=== PATIENT | female | born 1960 | race African-American/Black ===

== ENCOUNTER 2017-01-24 09:29 | Emergency (ER) | payer OTHER ==
[~2017-01-24 09:29] MED LIST: CLON0.1T PO; LISI-515 PO
[2017-01-24 09:31] VITALS: BP 201/98; PULSE 74; RESP 14; TEMP 97.8; O2SAT 97
--- NOTE | 2017-01-24 09:46 | PD ---
HPI Chief Complaint: Medication Refill Request Time Seen by Provider: 09:40 Travel History International Travel<30 days: No Contact w/Intl Traveler<30days: No Traveled to known affect area: No History of Present Illness HPI 56-year-old Afro-[place] female presents the emergency department for refills on her lisinopril and clonidine. Patient states she has been out for the last 2 days. She has no complaints currently, but is noted that she is hypertensive in triage. Patient denies headache or other symptoms. She is allergic to penicillin. PFSH Past Medical History Anemia: Yes Arthritis: No Asthma: Yes Autoimmune Disease: No Anxiety: Yes Depression: No Cancer: No Cardiomyopathy: Yes Cardiovascular Problems: Yes (HTN) High Cholesterol: No Chemotherapy: No Chest Pain: No Congestive Heart Failure: No COPD: No Cerebrovascular Accident: No Diabetes: No Diminished Hearing: No Endocrine: No Gastrointestinal Disorders: Yes GERD: No Glaucoma: No Genitourinary: No Headaches: Yes (S/P CLOSED HEAD INJURY 1988. 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) Psychiatric: No Reproductive: Yes (OVARIAN CYST, FIBROID TUMOR.) Respiratory: Yes Immunizations Current: Yes Migraines: No Radiation Therapy: No Renal Failure: No Sickle Cell Disease: No Sleep Apnea: No Thyroid Disease: No Ulcer: Yes Menopausal: Yes : 4 Para: 3 Miscarriage: 1 Past Surgical History AICD: No Appendectomy: No Arteriovenous Shunt: No Cholecystectomy: No Gynecologic Surgery: Yes (HYSTERECTOMY ) Hysterectomy: Yes Insulin Pump: No Neurologic Surgery: Yes Pacemaker: No Other Surgery: Yes (HYST 12/29) Social History Alcohol Use: Yes (OCASSIONALLY) Tobacco Use: Yes (/2 PPD) Substance Use: Yes (MARIJUANA) Allergies-Medications (Allergen,Severity, Reaction): Coded Allergies: Penicillin (Verified Allergy, Severe, SHAKING, RASH, ITCHING, 12/31/16) SHAKING Reported Meds & Prescriptions Reported Meds & Active Scripts Active Lisinopril 40 Mg Tab 40 Mg PO DAILY Clonidine (Clonidine HCl) 0.2 Mg Tab 0.2 Mg PO TID Clonidine (Clonidine HCl) 0.1 Mg Tab 0.1 Mg PO HS Lisinopril 20 Mg Tab 20 Mg PO DAILY Review of Systems Except as stated in HPI: all other systems reviewed are Neg General / Constitutional: No: Fever Eyes: No: Visual changes HENT: No: Headaches Cardiovascular: No: Chest Pain or Discomfort Respiratory: No: Shortness of Breath Gastrointestinal: No: Abdominal Pain Genitourinary: No: Dysuria Musculoskeletal: No: Pain Skin: No Rash Neurologic: No: Weakness Psychiatric: No: Depression Endocrine: No: Polydipsia Hematologic/Lymphatic: No: Easy Bruising Physical Exam Narrative GENERAL: Patient appears in no acute distress. SKIN: Warm and dry. Normal color. Normal turgor. HEAD: Atraumatic. Normocephalic. EYES: Pupils equal and round. No scleral icterus. No injection or drainage. ENT: No nasal bleeding or discharge. Mucous membranes pink and moist. NECK: Trachea midline. No JVD. CARDIOVASCULAR: Regular rate and rhythm. RESPIRATORY: No accessory muscle use. Clear to auscultation. Breath sounds equal bilaterally. MUSCULOSKELETAL: Extremities without clubbing, cyanosis, or edema. No obvious deformities. NEUROLOGICAL: Awake and alert. No obvious cranial nerve deficits. Motor grossly within normal limits. Five out of 5 muscle strength in the arms and legs. Normal speech. PSYCHIATRIC: Appropriate mood and affect; insight and judgment normal. Data Data Last Documented VS Vital Signs Date Time Temp Pulse Resp B/P Pulse Ox O2 Delivery O2 Flow Rate FiO2 01/24/17 09:31 97.8 74 14 201/98 97 Orders Clonidine (Catapres) (01/24/17 10:00) Lisinopril (Prinivil) (01/24/17 10:00) [facility] Medical Decision Making Medical Screen Exam Complete: Yes Emergency Medical Condition: Yes Differential Diagnosis Hypertension. Need for medication refill. Need for primary care physician. Narrative Course Patient is medically stable at time of exam. Patient is given a dose of clonidine 0.2 mg by mouth as well as lisinopril 40 mg by mouth. Patient is given a prescription for clonidine 0.2 mg 3 times a day as well as lisinopril 40 mg daily 1 month. Patient is given information about local primary care physicians. Patient should follow-up with them for further evaluation and treatment as discussed. Patient can return to emergency department at any time for worsening symptoms as needed. Diagnosis Primary Impression: Medication refill Additional Impression: Hypertension Qualified Code: I10 - Essential hypertension Referrals: [facility] Patient Instructions: 2 Gram Sodium Diet (DC), Chronic Hypertension (ED), General Instructions Additional Instructions: Patient is medically stable at time of exam. Patient is given a dose of clonidine 0.2 mg by mouth as well as lisinopril 40 mg by mouth. Patient is given a prescription for clonidine 0.2 mg 3 times a day as well as lisinopril 40 mg daily 1 month. Patient is given information about local primary care physicians. Patient should follow-up with them for further evaluation and treatment as discussed. Patient can return to emergency department at any time for worsening symptoms as needed. Med/Other Pt SpecificInfo: Prescription(s) given Scripts Lisinopril 40 Mg Tab40 Mg PO DAILY #30 TAB Ref 0 Prov:Gen Baum MD 01/24/17 Clonidine 0.2 Mg Tab0.2 Mg PO TID #90 TAB Ref 0 Prov:Gen Baum MD 01/24/17 Disposition: 01 DISCHARGE HOME Condition: Stable Mamadou Howell Jan 24, 2017 09:46
[2017-01-24] MEDS ORDERED: CLON0.2T PO ×2 (09:49→09:51)
[2017-01-24] MEDS ORDERED: LISI40TA PO ×2 (09:49→09:51)
[2017-01-24 09:56] VITALS: BP 167/76; PULSE 79; RESP 18; O2SAT 98
[2017-01-24] MEDS ORDERED: cloNIDine HCL 0.2 MG TAB PO ONE (10:00)
[2017-01-24] MEDS ORDERED: LISINOPRIL 20 MG TAB PO ONE (10:00)
== END 2017-01-24 10:10 | disposition home or self-care (01) ==
LOC: NEPK 09:29
DX: I10 Essential (primary) hypertension (principal); F17.200 Nicotine dependence, unspecified, uncomplicated; Z76.0 Encounter for issue of repeat prescription
CPT/HCPCS: 99283

== ENCOUNTER 2017-02-27 06:58 | Emergency (ER) | payer OTHER ==
[~2017-02-27] VITALS: Ht 170.2 cm; Wt 85.0 kg
[~2017-02-27 06:58] MED LIST changes: +CLON0.2T PO; +LISI40TA PO
[2017-02-27 07:00] VITALS: BP 227/109; PULSE 66; RESP 20; TEMP 98; O2SAT 99
[2017-02-27] MEDS ORDERED: CLON0.2T PO (07:09)
--- NOTE | 2017-02-27 07:42 | PD ---
HPI Chief Complaint: Hypertension Time Seen by Provider: 07:36 Travel History International Travel<30 days: No Contact w/Intl Traveler<30days: No Traveled to known affect area: No History of Present Illness HPI 56-year-old female arrives due to subjective hypertension. Normally she takes 2 mg of clonidine 3 times daily and 40 mg of lisinopril once daily. She took her last dose is 2 days ago. She does not have a prescription due to no primary care provider which she attributes to having no insurance. She reports Medicare Medicaid approval to be coming in the mail in the day and then she will establish primary care follow-up. She reports right forehead cephalgia, typical for hypertension for her, which is worse with laughing episodes and talking. Headache duration is 3 days. She has no chest pain or dizziness. She 's had no vomiting. PFSH Past Medical History Anemia: Yes Arthritis: No Asthma: Yes Autoimmune Disease: No Anxiety: Yes Depression: No Cancer: No Cardiomyopathy: Yes Cardiovascular Problems: Yes (htn) High Cholesterol: No Chemotherapy: No Chest Pain: No Congestive Heart Failure: No COPD: No Cerebrovascular Accident: No Diabetes: No Diminished Hearing: No Endocrine: No Gastrointestinal Disorders: Yes GERD: No Glaucoma: No Genitourinary: No Headaches: Yes (S/P CLOSED HEAD INJURY 1988. 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) Psychiatric: No Reproductive: Yes (OVARIAN CYST, FIBROID TUMOR.) Respiratory: Yes Immunizations Current: Yes Migraines: No Radiation Therapy: No Renal Failure: No Sickle Cell Disease: No Sleep Apnea: No Thyroid Disease: No Ulcer: Yes Influenza Vaccination: No Menopausal: Yes : 4 Para: 3 Miscarriage: 1 Past Surgical History AICD: No Appendectomy: No Arteriovenous Shunt: No Cholecystectomy: No Gynecologic Surgery: Yes (HYSTERECTOMY ) Hysterectomy: Yes Insulin Pump: No Neurologic Surgery: Yes Pacemaker: No Other Surgery: Yes (HYST 12/29) Social History Alcohol Use: Yes (OCASSIONALLY) Tobacco Use: Yes (08/26 PPD) Substance Use: No (MARIJUANA) Allergies-Medications (Allergen,Severity, Reaction): Coded Allergies: Penicillin (Verified Allergy, Severe, SHAKING, RASH, ITCHING, 02/27/17) SHAKING Reported Meds & Prescriptions Reported Meds & Active Scripts Active Clonidine (Clonidine HCl) 0.1 Mg Tab 0.1 Mg PO TID 15 Days Lisinopril 40 Mg Tab 40 Mg PO DAILY 15 Days Reported Clonidine (Clonidine HCl) 0.2 Mg Tab 0.2 Mg PO TID Review of Systems Except as stated in HPI: all other systems reviewed are Neg Physical Exam Narrative GENERAL: 56 yo F, NAD, WNWD SKIN: Warm and dry. HEAD: Atraumatic. Normocephalic. EYES: Pupils equal and round. No scleral icterus. No injection or drainage. ENT: No nasal bleeding or discharge. Mucous membranes pink and moist. NECK: Trachea midline. No JVD. CARDIOVASCULAR: Regular rate and rhythm. RESPIRATORY: No accessory muscle use. Clear to auscultation. Breath sounds equal bilaterally. GASTROINTESTINAL: Abdomen soft, non-tender, nondistended. Hepatic and splenic margins not palpable. MUSCULOSKELETAL: Extremities without clubbing, cyanosis, or edema. No obvious deformities. NEUROLOGICAL: Awake and alert. No obvious cranial nerve deficits. Motor grossly within normal limits. Five out of 5 muscle strength in the arms and legs. Normal speech. PSYCHIATRIC: Appropriate mood and affect; insight and judgment normal. Data Data Last Documented VS Vital Signs Date Time Temp Pulse Resp B/P Pulse Ox O2 Delivery O2 Flow Rate FiO2 02/27/17 07:00 98.0 66 20 227/109 99 Room Air VS reviewed, BP at time of HPI 201/110. Orders Clonidine (Catapres) (02/27/17 07:45) Lisinopril (Prinivil) (02/27/17 07:45) [facility] Medical Decision Making Medical Screen Exam Complete: Yes Emergency Medical Condition: Yes Medical Record Reviewed: Yes Differential Diagnosis Medication refill, cephalgia, hypertension, hypertensive emergency Narrative Course Pt received Clonidine 0.1mg and Lisinopril 40mg. We'll provide a short course of both by script. Necessity of follow up discussed. The patient is resting comfortably and feels better, is alert and in no distress at time of reassessment at 830pm; BP 196/91. Diagnosis Primary Impression: Medication refill Additional Impressions: Hypertension Qualified Code: I10 - Essential hypertension Headache Qualified Code: R51 - Nonintractable headache, unspecified chronicity pattern , unspecified headache type Referrals: Nohelia Oh MD call for appointment [facility] call for appointment Additional Instructions: You have a choice when it comes to health care, and we are glad that you chose [facility]. Hopefully, we have met your expectations on today's visit. You are welcome to return to [facility] at any time, as we are committed to meeting the health care needs of our community. Med/Other Pt SpecificInfo: Prescription(s) given Scripts Clonidine 0.1 Mg Tab0.1 Mg PO TID 15 Days Ref 0 Prov:Kimani Tejada MD 02/27/17 Lisinopril 40 Mg Tab40 Mg PO DAILY 15 Days Ref 0 Prov:Kimani Tejada MD 02/27/17 Disposition: 01 DISCHARGE HOME Condition: Stable Kimani Tejada MD Feb 27, 2017 07:42
[2017-02-27] MEDS ORDERED: LISINOPRIL 20 MG TAB PO ONE (07:45)
[2017-02-27] MEDS ORDERED: cloNIDine HCL 0.1 MG TAB PO ONE (07:45)
[2017-02-27] MEDS ORDERED: LISI40TA PO (08:04)
[2017-02-27] MEDS ORDERED: CLON0.1T PO (08:05)
[2017-02-27 08:32] VITALS: BP 194/84; PULSE 65; RESP 20; O2SAT 99
== END 2017-02-27 08:46 | disposition home or self-care (01) ==
LOC: NEPE 06:58
DX: Z76.0 Encounter for issue of repeat prescription (principal); I10 Essential (primary) hypertension; R51 Headache; I42.9 Cardiomyopathy, unspecified; F17.210 Nicotine dependence, cigarettes, uncomplicated
CPT/HCPCS: 99283

== ENCOUNTER 2017-04-16 11:57 | Emergency (ER) | payer OTHER ==
[~2017-04-16] VITALS: Ht 170.2 cm; Wt 91.0 kg
[~2017-04-16 11:57] MED LIST changes: -LISI-515 PO
[2017-04-16 11:59] VITALS: BP 175/88; PULSE 80; RESP 20; TEMP 98.8; O2SAT 98
--- NOTE | 2017-04-16 12:02 | PD ---
Physical Exam Date Seen by Provider: Apr 16, 2017 Time Seen by Provider: 12:00 Narrative 56 yo female here for HTN and right hand pain. Per patient BP as high as in the 200s systolic. out of her meds for 6 days. Also complains of right hand pain from "carpal tunnel". No injury. No other medical issues. Vitals are stable in triage. Awaiting bed placement. [facility] Medical Record Reviewed: Yes Supervised Visit with OTONIEL: No Kieran Esquivel Apr 16, 2017 12:01
[2017-04-16 13:16] VITALS: BP 167/80; PULSE 67; RESP 18; O2SAT 97
[2017-04-16 13:45] VITALS: BP 175/81; PULSE 80
[2017-04-16] MEDS ORDERED: CLON0.2T PO (13:45)
[2017-04-16] MEDS ORDERED: LISI40TA PO (13:45)
[2017-04-16] MEDS ORDERED: LISINOPRIL 20 MG TAB PO ONE (13:45)
--- NOTE | 2017-04-16 13:45 | PD ---
HPI Chief Complaint: Hypertension Time Seen by Provider: 13:28 Travel History International Travel<30 days: No Contact w/Intl Traveler<30days: No Traveled to known affect area: No History of Present Illness HPI This is a 56-year-old female who is homeless with a history of high blood pressure presents to the emergency department with a headache for 6 days, throbbing in the front of her head, associated with some blurry vision, constant , moderate severity. She denies any vomiting, difficulty speaking or difficulty walking. She says she has high blood pressure and has been out of her medications for 1 week. She usually takes lisinopril and clonidine. She is homeless but is trying to find a primary care physician. [facility] Past Medical History Anemia: Yes Arthritis: No Asthma: Yes Autoimmune Disease: No Blood Disorders: Yes Anxiety: Yes Depression: No Heart Rhythm Problems: Yes (MURMUR) Cancer: No Cardiomyopathy: Yes Cardiovascular Problems: Yes (HTN) High Cholesterol: No Chemotherapy: No Chest Pain: No Congestive Heart Failure: No COPD: No Cerebrovascular Accident: No Diabetes: No Diminished Hearing: No Endocrine: No Gastrointestinal Disorders: Yes GERD: No Glaucoma: No Genitourinary: No Headaches: Yes (S/P CLOSED HEAD INJURY 1988. 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) Psychiatric: No Reproductive: Yes (OVARIAN CYST, FIBROID TUMOR.) Respiratory: Yes Immunizations Current: Yes Migraines: No Radiation Therapy: No Renal Failure: No Sickle Cell Disease: No Sleep Apnea: No Thyroid Disease: No Ulcer: Yes Tetanus Vaccination: < 5 Years Influenza Vaccination: No ?: Not Menopausal: Yes : 4 Para: 3 Miscarriage: 1 Past Surgical History AICD: No Appendectomy: No Arteriovenous Shunt: No Cholecystectomy: No Gynecologic Surgery: Yes (HYSTERECTOMY ) Hysterectomy: Yes Insulin Pump: No Neurologic Surgery: Yes Pacemaker: No Other Surgery: Yes (ST 12/29) Social History Alcohol Use: Yes (OCASSIONALLY) Tobacco Use: Yes (08/26 PPD) Substance Use: No (MARIJUANA) Allergies-Medications (Allergen,Severity, Reaction): Coded Allergies: penicillin G (Unverified Allergy, Severe, SHAKING, RASH, ITCHING, 04/16/17) SHAKING Reported Meds & Prescriptions Reported Meds & Active Scripts Active Lisinopril 40 Mg Tab 40 Mg PO DAILY 15 Days Reported Clonidine (Clonidine HCl) 0.2 Mg Tab 0.2 Mg PO TID Review of Systems Except as stated in HPI: all other systems reviewed are Neg Physical Exam Narrative GENERAL:Well appearing, no acute distress SKIN: Focused skin assessment warm and dry. HEAD: Atraumatic. Normocephalic. EYES: Pupils equal and round. No injection or drainage. ENT: Moist mucous membranes NECK: Trachea midline. CARDIOVASCULAR: Regular rate and rhythm. No murmur appreciated. RESPIRATORY: Clear to auscultation. Breath sounds equal bilaterally. GASTROINTESTINAL: Abdomen soft, non-tender, nondistended. MUSCULOSKELETAL: No obvious deformities. NEUROLOGICAL: Awake and alert. No obvious cranial nerve deficits. No dysarthria or aphasia. No upper or lower extremity drift. No upper extremity ataxia. PSYCHIATRIC: Appropriate mood and affect; insight and judgment normal. Data Data Last Documented VS Vital Signs Date Time Temp Pulse Resp B/P (MAP) Pulse Ox O2 Delivery O2 Flow Rate FiO2 04/16/17 13:16 67 18 167/80 (109) 97 Room Air 04/16/17 11:59 98.8 Orders Orders Lisinopril (Prinivil) (04/16/17 13:45) [facility]DM Medical Decision Making Medical Screen Exam Complete: Yes Emergency Medical Condition: Yes Interpretation(s) Hypertension Differential Diagnosis Intracranial hemorrhage, hypertension, hypertensive urgency, hypertensive emergency Narrative Course This is a 56-year-old female who presents to the emergency department with a headache for 6 days. She has a normal neurologic exam. She was hoping to get her medications for blood pressure refilled. I recommended a CT scan of her head to rule out intracranial hemorrhage. She refuses to do a CT saying she doesn't like machines and she thinks this is just poorly controlled blood pressure because she's been out of her medication. She was given 40 of lisinopril here in the emergency department and she will be prescribed 1 month refill. She was given a referral to the failure clinic to follow-up with them as an outpatient. Diagnosis Primary Impression: Accelerated hypertension Patient Instructions: General Instructions Additional Instructions: If you develop severe worsening headache, persistent vomiting, numbness, weakness, difficulty walking or difficulty talking return to the emergency department immediately. Sometimes in the emergency department we did not identify the cause of headaches. If you continued to have headaches it is very important that you followup with your primary care physician as you may need further testing with an MRI. Med/Other Pt SpecificInfo: Prescription(s) given Scripts Lisinopril (Lisinopril) 40 Mg Tab 40 MG PO DAILY for Blood Pressure Management, #30 TAB 0 Refills Prov: Mera Hope MD 04/16/17 Clonidine (Clonidine) 0.2 Mg Tab 0.2 MG PO BID for Blood Pressure Management, #60 TAB 0 Refills Prov: Mera Hope MD 04/16/17 Disposition: 01 DISCHARGE HOME Condition: Stable Mera Hope MD Apr 16, 2017 13:45
== END 2017-04-16 14:06 | disposition home or self-care (01) ==
LOC: NEPD 11:57
DX: I10 Essential (primary) hypertension (principal); F17.200 Nicotine dependence, unspecified, uncomplicated
CPT/HCPCS: 99284

== ENCOUNTER 2017-04-17 11:28 | Emergency (ER) | payer OTHER ==
[~2017-04-17] VITALS: Ht 170.2 cm; Wt 92.0 kg
[2017-04-17] VITALS (7 sets, daily range): BP systolic 160–216; BP diastolic 81–92; PULSE 67–74; RESP 13–18; TEMP 98.2; O2SAT 95–98
[~2017-04-17 11:28] MED LIST changes: -CLON0.1T PO
[2017-04-17] MEDS ORDERED: PROCHLORPERAZINE INJ 10 MG/2 ML VIAL IV PUSH ONE (13:00)
[2017-04-17] MEDS ORDERED: diphenhydrAMINE HCL 50 MG/ML VIAL IV PUSH ONE (13:00)
[2017-04-17] MEDS ORDERED: SODIUM CHLOR 0.9% 1000 ML INJ 1,000 ML IV ONE (13:00)
[2017-04-17 13:54] LABS: AUTOMATED NEUTROPHIL # 3.7 TH/MM3 (1.8-7.7); BASOPHIL # 0.1 TH/MM3 (0-0.2); BASOPHIL % 0.8 % (0.0-2.0); EOSINOPHIL # 0.2 TH/MM3 (0-0.4); EOSINOPHIL % 2.7 % (0.0-4.0); HEMATOCRIT 38.5 % (35.0-46.0); HEMO FLAGS DIFF FINAL; LYMPH % 35.7 % (9.0-44.0); LYMPHOCYTE # 2.5 TH/MM3 (1.0-4.8); MEAN CELL VOLUME 84.7 FL (80.0-100.0); MEAN CORPUSCULAR HEMOGLOBIN 28.2 PG (27.0-34.0); MEAN CORPUSCULAR HGB CONC 33.4 % (32.0-36.0); MONO % 8.6 % (0.0-8.0); NEUT % 52.2 % (16.0-70.0); PLATELET COUNT 327 TH/MM3 (150-450); RED BLOOD COUNT 4.55 MIL/MM3 (4.00-5.30); RED CELL DISTRIBUTION WIDTH 14.4 % (11.6-17.2)
[2017-04-17 14:13] LABS: BICARBONATE 23.5 MEQ/L (21.0-32.0)
[2017-04-17] MEDS ORDERED: cloNIDine HCL 0.2 MG TAB PO ONE (14:15)
[2017-04-17 14:19] LABS: POTASSIUM 5.3 MEQ/L (3.5-5.1)
--- NOTE | 2017-04-17 15:11 | RADRPT ---
EXAM DATE/TIME: 04/17/2017 14:08 [place] COMPARISON: CT BRAIN W/O CONTRAST, April 15, 2015, 10:50. INDICATIONS : Headache, hypertension. RADIATION DOSE: 56.35 CTDIvol (mGy) MEDICAL HISTORY : Hypertension. Heart murmur SURGICAL HISTORY : Hysterectomy. ENCOUNTER: Initial ACUITY: 3 days PAIN SCALE: 4/10 LOCATION: Bilateral cranial TECHNIQUE: Multiple contiguous axial images were obtained of the head. Using automated exposure control and adj ustment of the mA and/or kV according to patient size, radiation dose was kept as low as reasonably a chievable to obtain optimal diagnostic quality images. DICOM format image data is available electro nically for review and comparison. FINDINGS: CEREBRUM: The ventricles are normal for age. No evidence of midline shift, mass lesion, hemorrhage or acute in farction. No extra-axial fluid collections are seen. POSTERIOR FOSSA: The cerebellum and brainstem are intact. The 4th ventricle is midline. The cerebellopontine angle i s unremarkable. EXTRACRANIAL: The visualized portion of the orbits is intact. SKULL: The calvaria is intact. No evidence of skull fracture. CONCLUSION: 1. No acute intracranial abnormality identified. Kimani Rey MD on April 17, 2017 at 15:07 Board Certified Radiologist. This report was verified electronically.
--- NOTE | 2017-04-17 15:11 | PD ---
HPI Chief Complaint: Hypertension Time Seen by Provider: 12:51 Travel History International Travel<30 days: No Contact w/Intl Traveler<30days: No Traveled to known affect area: No History of Present Illness HPI This is a 56-year-old female who presents to the emergency department with a headache. The patient is homeless and says that for the past week her head is been hurting, throbbing in the front of her head, constant, moderate severity. She denies any vomiting, difficulty walking or difficulty talking. I saw her here yesterday and she was requesting refills for her blood pressure medications. She says she was able to fill her lisinopril but not her clonidine and she said she took her Lisinopril this morning. PFSH Past Medical History Anemia: Yes Arthritis: No Asthma: Yes Autoimmune Disease: No Blood Disorders: Yes Anxiety: Yes Depression: No Heart Rhythm Problems: Yes (MURMUR) Cancer: No Cardiomyopathy: Yes Cardiovascular Problems: Yes (HTN) High Cholesterol: No Chemotherapy: No Chest Pain: No Congestive Heart Failure: No COPD: No Cerebrovascular Accident: No Diabetes: No Diminished Hearing: No Endocrine: No Gastrointestinal Disorders: Yes GERD: No Glaucoma: No Genitourinary: No Headaches: Yes (S/P CLOSED HEAD INJURY 1988. 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) Psychiatric: No Reproductive: Yes (OVARIAN CYST, FIBROID TUMOR.) Respiratory: Yes Immunizations Current: Yes Migraines: No Radiation Therapy: No Renal Failure: No Sickle Cell Disease: No Sleep Apnea: No Thyroid Disease: No Ulcer: Yes Influenza Vaccination: No Menopausal: Yes : 4 Para: 3 Miscarriage: 1 Past Surgical History AICD: No Appendectomy: No Arteriovenous Shunt: No Cholecystectomy: No Gynecologic Surgery: Yes (HYSTERECTOMY ) Hysterectomy: Yes Insulin Pump: No Neurologic Surgery: Yes Pacemaker: No Other Surgery: Yes (ST 12/29) Social History Alcohol Use: Yes (OCASSIONALLY) Tobacco Use: Yes (08/26 PPD) Substance Use: Yes (MARIJUANA, TWICE PER MONTH) Allergies-Medications (Allergen,Severity, Reaction): Coded Allergies: penicillin G (Unverified Allergy, Severe, SHAKING, RASH, ITCHING, 04/17/17) SHAKING Reported Meds & Prescriptions Reported Meds & Active Scripts Active Lisinopril 40 Mg Tab 40 Mg PO DAILY Clonidine (Clonidine HCl) 0.2 Mg Tab 0.2 Mg PO BID Review of Systems Except as stated in HPI: all other systems reviewed are Neg Physical Exam Narrative GENERAL:Well appearing, no acute distress SKIN: Focused skin assessment warm and dry. HEAD: Atraumatic. Normocephalic. EYES: Pupils equal and round. No injection or drainage. ENT: Moist mucous membranes NECK: Trachea midline. CARDIOVASCULAR: Regular rate and rhythm. No murmur appreciated. RESPIRATORY: Clear to auscultation. Breath sounds equal bilaterally. GASTROINTESTINAL: Abdomen soft, non-tender, nondistended. MUSCULOSKELETAL: No obvious deformities. NEUROLOGICAL: Awake and alert. No obvious cranial nerve deficits. Moving all extremities. No ataxia. No dysarthria or aphasia. PSYCHIATRIC: Appropriate mood and affect; insight and judgment normal. Data Data Last Documented VS Vital Signs Date Time Temp Pulse Resp B/P (MAP) Pulse Ox O2 Delivery O2 Flow Rate FiO2 04/17/17 14:03 68 17 216/92 (133) Room Air 04/17/17 12:55 98 04/17/17 11:[address] Brain W/O Iv Contrast(Rout) (04/17/17 ) Complete Blood Count With Diff (04/17/17 12:51) Basic Metabolic Panel (Bmp) (04/17/17 12:51) Prochlorperazine Inj (Compazine Inj) (04/17/17 13:00) Diphenhydramine Inj (Benadryl Inj) (04/17/17 13:00) Sodium Chlor 0.9% 1000 Ml Inj (Ns 1000 M (04/17/17 13:00) Electrocardiogram (04/17/17 11:50) Clonidine (Catapres) (04/17/17 14:15) Ketorolac Inj (Toradol Inj) (04/17/17 15:30) Labetalol Inj (Trandate Inj) (04/17/17 15:30) Labs Laboratory Tests Test 04/17/17 13:30 White Blood Count 7.0 TH/MM3 Red Blood Count 4.55 MIL/MM3 Hemoglobin 12.9 GM/DL Hematocrit 38.5 % Mean Corpuscular Volume 84.7 FL Mean Corpuscular Hemoglobin 28.2 PG Mean Corpuscular Hemoglobin Concent 33.4 % Red Cell Distribution Width 14.4 % Platelet Count 327 TH/MM3 Mean Platelet Volume 8.7 FL Neutrophils (%) (Auto) 52.2 % Lymphocytes (%) (Auto) 35.7 % Monocytes (%) (Auto) 8.6 % Eosinophils (%) (Auto) 2.7 % Basophils (%) (Auto) 0.8 % Neutrophils # (Auto) 3.7 TH/MM3 Lymphocytes # (Auto) 2.5 TH/MM3 Monocytes # (Auto) 0.6 TH/MM3 Eosinophils # (Auto) 0.2 TH/MM3 Basophils # (Auto) 0.1 TH/MM3 CBC Comment DIFF FINAL Differential Comment Blood Urea Nitrogen 16 MG/DL Creatinine 0.94 MG/DL Random Glucose 95 MG/DL Calcium Level 9.2 MG/DL Sodium Level 135 MEQ/L Potassium Level 5.3 MEQ/L Chloride Level 106 MEQ/L Carbon Dioxide Level 23.5 MEQ/L Anion Gap 6 MEQ/L Estimat Glomerular Filtration Rate 74 ML/MIN MDM Medical Decision Making Medical Screen Exam Complete: Yes Emergency Medical Condition: Yes Interpretation(s) afebrile, no tachycardia, hypertension no leukocytosis hyperkalemia likely due to hemolysis Last [address] 04/17/17 0000 Signed Impressions: Service Date/Time: March 14:08 - CONCLUSION: 1. No acute intracranial abnormality identified. Kimani Rey MD Differential Diagnosis Hypertension, intracranial hemorrhage, subarachnoid hemorrhage, tension headache , migraine headache Narrative Course This is a 56-year-old female who is homeless who presents to the emergency department for refractory headache. She was seen in the emergency department yesterday and refused CT imaging. Today an IV was placed and she is placed on a monitor. Labs are obtained which were reassuring. I ordered a CT which was negative for intracranial hemorrhage. I think her headaches are related to her high blood pressure. She says she can't afford to fill her medications. She was given clonidine and labetalol here in the emergency department and her blood pressure dropped appropriately. I don't think we can admit her for this as this is going to be a long-term problem. She needs to file for patient assistance at the [facility] and we discussed this with her. I did give her information regarding the [facility] yesterday. Patient will be discharged home. Diagnosis Primary Impression: Accelerated hypertension Patient Instructions: General Instructions Additional Instructions: If you develop severe worsening headache, persistent vomiting, numbness, weakness, difficulty walking or difficulty talking return to the emergency department immediately. Sometimes in the emergency department we did not identify the cause of headaches. If you continued to have headaches it is very important that you followup with your primary care physician as you may need further testing with an MRI. Med/Other Pt SpecificInfo: No Change to Meds Disposition: 01 DISCHARGE HOME Condition: Stable Mera Hope MD Apr 17, 2017 15:11
[2017-04-17] MEDS ORDERED: LABETALOL HCL 100 MG/20 ML VIAL IV PUSH ONE (15:30)
[2017-04-17] MEDS ORDERED: KETOROLAC TROMETHAMINE 30 MG/ML (IVP) VIAL IV PUSH ONE (15:30)
--- NOTE | 2017-04-18 11:51 | EKG ---
Date Performed: 04/17/2017 Time Performed: 14:57:49 PTAGE: 56 years EKG: Sinus rhythm WITH FIRST DEGREE AV BLOCK ABNORMAL ECG Compared to prior tracing no significant change PREVIOUS TRACING : 04/17/2017 11.50 DOCTOR: Adrian Espinal Interpretating Date/Time 04/18/2017 11:45:58
--- NOTE | 2017-04-18 11:51 | EKG ---
Date Performed: 04/17/2017 Time Performed: 11:50:01 PTAGE: 56 years EKG: Sinus rhythm NORMAL ECG Compared to prior tracing no significant change PREVIOUS TRACING : 04/17/2017 11.49 DOCTOR: Adrian Espinal Interpretating Date/Time 04/18/2017 11:46:28
== END 2017-04-17 16:54 | disposition home or self-care (01) ==
LOC: NEPE 11:28
DX: I10 Essential (primary) hypertension (principal); E87.5 Hyperkalemia; D64.9 Anemia, unspecified; J45.909 Unspecified asthma, uncomplicated; F41.9 Anxiety disorder, unspecified; I42.9 Cardiomyopathy, unspecified; I44.0 Atrioventricular block, first degree; R94.31 Abnormal electrocardiogram [ECG] [EKG]; F17.200 Nicotine dependence, unspecified, uncomplicated
CPT/HCPCS: 70450; 80048; 85025; 93005; 96361; 96374; 96375; 99285; J0780; J1200; J1885; J7030

== ENCOUNTER 2017-05-16 12:08 | Emergency (ER) | payer OTHER ==
[~2017-05-16] VITALS: Ht 170.2 cm; Wt 90.5 kg
[2017-05-16 12:10] VITALS: BP 222/106; PULSE 83; RESP 12; TEMP 98.5; O2SAT 99
[2017-05-16 12:21] VITALS: BP 222/100
--- NOTE | 2017-05-16 12:22 | PD ---
Physical Exam Time Seen by Provider: 12:20 Narrative 56-year-old female presents to the emergency department requesting refills on her blood pressure medication, lisinopril and clonidine, which she hasn't taken for 6 days. Reports an episode of chest pain and shortness of breath earlier this morning which has resolved. Reports current headache, and blurred vision. Denies nausea, vomiting. Patient seen in triage. VS reviewed. Patient awaiting bed placement. BP recheck 222/100 in triage. Data Data Last Documented VS Vital Signs Date Time Temp Pulse Resp B/P (MAP) Pulse Ox O2 Delivery O2 Flow Rate FiO2 05/16/17 12:10 98.5 83 12 222/106 (144) 99 MDM Supervised Visit with OTONIEL: Doreen Gleason May 16, 2017 12:22
[2017-05-16 12:33] VITALS: BP 217/96; PULSE 74; RESP 20; O2SAT 97
[2017-05-16] MEDS ORDERED: cloNIDine HCL 0.2 MG TAB PO ONE (13:00)
[2017-05-16] MEDS ORDERED: LISINOPRIL 20 MG TAB PO ONE (13:00)
[2017-05-16 14:09] LABS: BICARBONATE 28.9 MEQ/L (21.0-32.0); POTASSIUM 3.6 MEQ/L (3.5-5.1)
[2017-05-16] MEDS ORDERED: CLON0.2T PO (14:30)
[2017-05-16] MEDS ORDERED: LISI40TA PO (14:30)
--- NOTE | 2017-05-16 14:30 | PD ---
HPI Chief Complaint: Medication Refill Request Time Seen by Provider: 12:34 Travel History International Travel<30 days: No Contact w/Intl Traveler<30days: No Traveled to known affect area: No History of Present Illness HPI This is a 56-year-old female who presents to the emergency department having run out of her blood pressure medications. She describes a dull headache, mild , constant for 2 days, gradual onset, with no associated numbness, weakness or vomiting. She denies any difficulty walking or talking. She is homeless and doesn't have a primary care doctor. PFSH Past Medical History Anemia: Yes Arthritis: No Asthma: Yes Autoimmune Disease: No Blood Disorders: Yes Anxiety: Yes Depression: No Heart Rhythm Problems: Yes (MURMUR) Cancer: No Cardiomyopathy: Yes Cardiovascular Problems: Yes (HTN) High Cholesterol: No Chemotherapy: No Chest Pain: No Congestive Heart Failure: No COPD: No Cerebrovascular Accident: No Diabetes: No Diminished Hearing: No Endocrine: No Gastrointestinal Disorders: Yes GERD: No Glaucoma: No Genitourinary: No Headaches: Yes (S/P CLOSED HEAD INJURY 1988. 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) Psychiatric: No Reproductive: Yes (OVARIAN CYST, FIBROID TUMOR.) Respiratory: Yes Immunizations Current: Yes Migraines: No Radiation Therapy: No Renal Failure: No Sickle Cell Disease: No Sleep Apnea: No Thyroid Disease: No Ulcer: Yes Menopausal: Yes : 4 Para: 3 Miscarriage: 1 Past Surgical History AICD: No Appendectomy: No Arteriovenous Shunt: No Cholecystectomy: No Gynecologic Surgery: Yes (HYSTERECTOMY ) Hysterectomy: Yes Insulin Pump: No Neurologic Surgery: Yes Pacemaker: No Other Surgery: Yes (HYST 12/29) Social History Alcohol Use: Yes (OCASSIONALLY) Tobacco Use: Yes (/2 PPD) Substance Use: Yes (MARIJUANA, TWICE PER MONTH) Allergies-Medications (Allergen,Severity, Reaction): Coded Allergies: penicillin G (Unverified Allergy, Severe, SHAKING, RASH, ITCHING, 05/16/17) SHAKING Reported Meds & Prescriptions Reported Meds & Active Scripts Active Lisinopril 40 Mg Tab 40 Mg PO DAILY Clonidine (Clonidine HCl) 0.2 Mg Tab 0.2 Mg PO BID Review of Systems Except as stated in HPI: all other systems reviewed are Neg Physical Exam Narrative GENERAL:Well appearing, no acute distress SKIN: Focused skin assessment warm and dry. HEAD: Atraumatic. Normocephalic. EYES: Pupils equal and round. No injection or drainage. ENT: Moist mucous membranes NECK: Trachea midline. CARDIOVASCULAR: Regular rate and rhythm. No murmur appreciated. RESPIRATORY: Clear to auscultation. Breath sounds equal bilaterally. GASTROINTESTINAL: Abdomen soft, non-tender, nondistended. MUSCULOSKELETAL: No obvious deformities. NEUROLOGICAL: Awake and alert. No obvious cranial nerve deficits. No dysarthria or aphasia. No upper or lower extremity drift. No upper extremity ataxia. Data Data Last Documented VS Vital Signs Date Time Temp Pulse Resp B/P (MAP) Pulse Ox O2 Delivery O2 Flow Rate FiO2 05/16/17 12:33 78 20 05/16/17 12:33 217/96 (136) 97 Room Air 05/16/17 12:10 98.5 Orders Orders Basic Metabolic Panel (Bmp) (05/16/17 12:55) Lisinopril (Prinivil) (05/16/17 13:00) Clonidine (Catapres) (05/16/17 13:00) Labs Laboratory Tests Test 05/16/17 13:30 Blood Urea Nitrogen 19 MG/DL Creatinine 0.83 MG/DL Random Glucose 95 MG/DL Calcium Level 9.1 MG/DL Sodium Level 137 MEQ/L Potassium Level 3.6 MEQ/L Chloride Level 104 MEQ/L Carbon Dioxide Level 28.9 MEQ/L Anion Gap 4 MEQ/L Estimat Glomerular Filtration Rate 86 ML/MIN [facility] Medical Decision Making Medical Screen Exam Complete: Yes Emergency Medical Condition: Yes Interpretation(s) Hypertension, afebrile Differential Diagnosis Hypertension, hypertensive urgency, hypertensive emergency Narrative Course This is a 56-year-old female who has a history of chronic high blood pressure who presents to the emergency department with hypertension having run out of her medications. We discussed CT imaging of her head and I advised her to rule out intracranial hemorrhage but she declined because she gets claustrophobic. She said she had a CT the last time she was here and she doesn't want another one. Patient will be discharged on her blood pressure medications. I rechecked a BMP because the last time she was hyperkalemic but it was thought to be in the setting of hemolysis. Today her potassium is normal sized think it safe for her to continue with Lisinopril Diagnosis Primary Impression: Hypertension Qualified Codes: I10 - Essential (primary) hypertension Patient Instructions: General Instructions Additional Instructions: If you develop severe chest pain, shortness of breath, sweating, lightheadedness , dizziness or difficulty breathing return to the emergency department immediately. Followup with your primary care physician in 2-3 days if your symptoms are not resolved. Med/Other Pt SpecificInfo: Prescription(s) given Scripts Lisinopril (Lisinopril) 40 Mg Tab 40 MG PO DAILY for Blood Pressure Management, #30 TAB 0 Refills Prov: Mera Hope MD 05/16/17 Clonidine (Clonidine) 0.2 Mg Tab 0.2 MG PO BID for Blood Pressure Management, #60 TAB 0 Refills Prov: Mera Hope MD 05/16/17 Disposition: 01 DISCHARGE HOME Condition: Stable Mera Hope MD May 16, 2017 14:30
== END 2017-05-16 15:10 | disposition home or self-care (01) ==
LOC: NEPC 12:08
DX: I10 Essential (primary) hypertension (principal); F17.200 Nicotine dependence, unspecified, uncomplicated
CPT/HCPCS: 80048; 99284

== ENCOUNTER 2017-08-24 08:54 | Emergency (ER) | payer OTHER ==
[~2017-08-24] VITALS: Ht 170.2 cm; Wt 91.0 kg
[2017-08-24 08:56] VITALS: BP 161/84; PULSE 78; RESP 16; TEMP 98.6; O2SAT 99
[2017-08-24] MEDS ORDERED: LISI40TA PO (09:11)
[2017-08-24] MEDS ORDERED: CLON0.2T PO (09:11)
[2017-08-24] MEDS ORDERED: cloNIDine HCL 0.2 MG TAB PO ONE (09:15)
--- NOTE | 2017-08-24 09:16 | PD ---
HPI Chief Complaint: Medication Refill Request Time Seen by Provider: 09:03 Travel History International Travel<30 days: No Contact w/Intl Traveler<30days: No Traveled to known affect area: No History of Present Illness HPI 56-year-old female presents to the emergency Department requesting medication refill on lisinopril 40 mg daily and clonidine 0.2 mg bid. She has been out of her medication for 20 days. Complaining of headache for the past 3 days secondary to elevated blood pressure. She's been taking her blood pressure at home and states is not elevated. Denies chest pain, shortness of breath, abdominal pain, vomiting, change in vision. Denies focal deficits or weakness. Rates headache 9/10. Gradual onset. Throbbing aching and stabbing in sensation. Headache is frontal. Consistent with past headaches. Has not taken any medication or treatment treatments to repeat her symptoms. Headaches are relieved with blood pressure medication. Aggravated when she doesn't have her blood pressure medication. No established primary care provider. History of hypertension. Allergies to penicillin. Has no other medical complaints. No other modifying factors or associated signs and symptoms. PFSH Past Medical History Anemia: Yes Arthritis: No Asthma: Yes Autoimmune Disease: No Blood Disorders: Yes Anxiety: Yes Depression: No Heart Rhythm Problems: Yes (MURMUR) Cancer: No Cardiomyopathy: Yes Cardiovascular Problems: Yes (HTN) High Cholesterol: No Chemotherapy: No Chest Pain: No Congestive Heart Failure: No COPD: No Cerebrovascular Accident: No Diabetes: No Diminished Hearing: No Endocrine: No Gastrointestinal Disorders: Yes GERD: No Glaucoma: No Genitourinary: No Headaches: Yes (S/P CLOSED HEAD INJURY 1988. 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) Psychiatric: No Reproductive: Yes (OVARIAN CYST, FIBROID TUMOR.) Respiratory: Yes Immunizations Current: Yes Migraines: No Radiation Therapy: No Renal Failure: No Sickle Cell Disease: No Sleep Apnea: No Thyroid Disease: No Ulcer: Yes Menopausal: Yes : 4 Para: 3 Miscarriage: 1 Past Surgical History AICD: No Appendectomy: No Arteriovenous Shunt: No Cholecystectomy: No Gynecologic Surgery: Yes (HYSTERECTOMY ) Hysterectomy: Yes Insulin Pump: No Neurologic Surgery: Yes Pacemaker: No Other Surgery: Yes (HYST 5/07) Social History Alcohol Use: Yes (OCASSIONALLY) Tobacco Use: Yes (/2 PPD) Substance Use: No Allergies-Medications (Allergen,Severity, Reaction): Coded Allergies: penicillin G (Unverified Allergy, Severe, SHAKING, RASH, ITCHING, 08/24/17 ) SHAKING Reported Meds & Prescriptions Reported Meds & Active Scripts Active Lisinopril 40 Mg Tab 40 Mg PO DAILY Clonidine (Clonidine HCl) 0.2 Mg Tab 0.2 Mg PO BID Review of Systems Except as stated in HPI: all other systems reviewed are Neg Physical Exam Narrative GENERAL: Well-nourished, well-developed black female patient, in no acute distress SKIN: Warm and dry. HEAD: Atraumatic. Normocephalic. No facial droop noted. EYES: Pupils equal and round. No scleral icterus. No injection or drainage. ENT: Mucosa pink and moist. Airway patent. NECK: Trachea midline. CARDIOVASCULAR: Regular rate and rhythm. No murmur appreciated. RESPIRATORY: No accessory muscle use. Breath sounds clinical bilaterally. No retractions or tachypnea. GASTROINTESTINAL: Round. MUSCULOSKELETAL: No obvious deformities. No clubbing. No cyanosis. No edema. Ambulatory with normal gait. NEUROLOGICAL: Awake and alert. Oriented 3. No obvious cranial nerve deficits. Motor grossly within normal limits. Normal speech. PSYCHIATRIC: Appropriate mood and affect; insight and judgment normal. Data Data Last Documented VS Vital Signs Date Time Temp Pulse Resp B/P (MAP) Pulse Ox O2 Delivery O2 Flow Rate FiO2 08/24/17 09:48 08/24/17 08:56 98.6 78 16 99 Room Air Orders Orders Clonidine (Catapres) (08/24/17 09:15) Ed Discharge Order (08/24/17 09:35) [facility] [place] Medical Decision Making Medical Screen Exam Complete: Yes Emergency Medical Condition: Yes Medical Record Reviewed: Yes Differential Diagnosis Medication refill, elevated blood pressure reading, headache Narrative Course 56-year-old female requesting medication refill on lisinopril and clonidine. She currently has a headache and relates it to her elevated blood pressure. Headaches are consistent with past headaches. Weakness. Blood pressure 161/ 84. Denies chest pain, shortness of breath, blurred vision, vomiting. Clonidine 0.2 mg administered in the ER. 0935: At reevaluation the patient denies improvement in headache. I discussed CT scan, pain medication and she declined. She said she wants to go home. Prescriptions for clonidine and lisinopril provided. Provided information to [facility] for follow-up. Instructed patient to follow up with primary care provider. Patient verbalizes understanding and agreement with treatment plan. Patient is medically cleared and stable for discharge. Discussed reasons to return to the emergency department. Patient agrees with treatment plan. The patients vital signs are stable and the patient is stable for outpatient follow-up and treatment. Patient discharged home, stable and in no acute distress. Diagnosis Primary Impression: Medication refill Additional Impression: Headache Qualified Codes: R51 - Headache Referrals: [facility] Primary Care Physician Patient Instructions: General Instructions, Hypertension (ED), Medication Refill, ED Additional Instructions: Take blood pressure medications as prescribed Follow-up with your primary care provider Return to the emergency department immediately with symptoms of increased blood pressure, taken only if you are experiencing severe chest pain, severe headache , confusion, blurred vision, nausea and vomiting, shortness of breath, seizures Med/Other Pt SpecificInfo: Prescription(s) given Scripts Lisinopril (Lisinopril) 40 Mg Tab 40 MG PO DAILY for Blood Pressure Management, #30 TAB 0 Refills Prov: Doreen Glover 08/24/17 Clonidine (Clonidine) 0.2 Mg Tab 0.2 MG PO BID for Blood Pressure Management, #60 TAB 0 Refills Prov: Doreen Glover 08/24/17 Disposition: 01 DISCHARGE HOME Condition: Stable Doreen Glover Aug 24, 2017 09:16
== END 2017-08-24 09:49 | disposition home or self-care (01) ==
LOC: NEPD 08:54
DX: Z76.0 Encounter for issue of repeat prescription (principal); R51 Headache; I10 Essential (primary) hypertension; J45.909 Unspecified asthma, uncomplicated; F41.9 Anxiety disorder, unspecified; I42.9 Cardiomyopathy, unspecified; N83.209 Unspecified ovarian cyst, unspecified side; F17.200 Nicotine dependence, unspecified, uncomplicated; Z88.0 Allergy status to penicillin
CPT/HCPCS: 99283

== ENCOUNTER 2017-09-25 08:59 | Emergency (ER) | payer OTHER ==
[~2017-09-25] VITALS: Ht 170.2 cm; Wt 99.5 kg
[2017-09-25 09:01] VITALS: BP 218/103; PULSE 74; RESP 14; TEMP 97.6; O2SAT 100
[2017-09-25] MEDS ORDERED: LISI40TA PO (09:38)
[2017-09-25] MEDS ORDERED: CLON0.2T PO (09:38)
[2017-09-25] MEDS ORDERED: CLOTR1%T TOPICAL (09:39)
--- NOTE | 2017-09-25 09:39 | PD ---
HPI Chief Complaint: Hypertension Time Seen by Provider: 09:26 Travel History International Travel<30 days: No Contact w/Intl Traveler<30days: No Traveled to known affect area: No History of Present Illness HPI This is a 57 year old female who presents to the emergency department with a history of hypertension who presents to the emergency department requesting a medication refill. She has been out of her blood pressure medications for 5-6 days. She denies any chest pain, shortness of breath, lightheadedness or dizziness. She says she has been trying to follow up with [facility] but she does not have the money to pay the fee and she supposed to get her Medicaid card at the end of the month. PFSH Past Medical History Anemia: Yes Arthritis: No Asthma: Yes Autoimmune Disease: No Blood Disorders: Yes Anxiety: Yes Depression: No Heart Rhythm Problems: Yes (MURMUR) Cancer: No Cardiomyopathy: Yes Cardiovascular Problems: Yes High Cholesterol: No Chemotherapy: No Chest Pain: No Congestive Heart Failure: No COPD: No Cerebrovascular Accident: No Diabetes: No Diminished Hearing: No Endocrine: No Gastrointestinal Disorders: Yes GERD: No Glaucoma: No Genitourinary: No Headaches: Yes (S/P CLOSED HEAD INJURY 1988. ) Hepatitis: No Hiatal Hernia: No Hypertension: Yes Immune Disorder: No Kidney Stones: No Musculoskeletal: Yes (CHRONIC BACK PAIN) Neurologic: Yes Psychiatric: No Reproductive: Yes (OVARIAN CYST, FIBROID TUMOR.) Respiratory: Yes Immunizations Current: Yes Migraines: No Radiation Therapy: No Renal Failure: No Sickle Cell Disease: No Sleep Apnea: No Thyroid Disease: No Ulcer: Yes ?: Not Menopausal: Yes : 4 Para: 3 Miscarriage: 1 Past Surgical History AICD: No Appendectomy: No Arteriovenous Shunt: No Cholecystectomy: No Gynecologic Surgery: Yes (HYSTERECTOMY ) Hysterectomy: Yes Insulin Pump: No Neurologic Surgery: Yes Pacemaker: No Other Surgery: Yes (HYST 12/29) Social History Alcohol Use: Yes (OCASSIONALLY) Tobacco Use: Yes (2 PPD) Substance Use: No Allergies-Medications (Allergen,Severity, Reaction): Coded Allergies: penicillin G (Unverified Allergy, Severe, SHAKING, RASH, ITCHING, 09/25/17) SHAKING Reported Meds & Prescriptions Reported Meds & Active Scripts Active Lisinopril 40 Mg Tab 40 Mg PO DAILY Clonidine (Clonidine HCl) 0.2 Mg Tab 0.2 Mg PO BID Review of Systems General / Constitutional: No: Fever, Chills Respiratory: No: Cough, Shortness of Breath Physical Exam Narrative GENERAL:Well appearing, no acute distress SKIN: Annular raised rash in discrete circles over the back HEAD: Atraumatic. Normocephalic. EYES: Pupils equal and round. No injection or drainage. ENT: Moist mucous membranes NECK: Trachea midline. CARDIOVASCULAR: Regular rate and rhythm. No murmur appreciated. RESPIRATORY: Clear to auscultation. Breath sounds equal bilaterally. GASTROINTESTINAL: Abdomen soft, non-tender, nondistended. MUSCULOSKELETAL: No obvious deformities. NEUROLOGICAL: Awake and alert. No obvious cranial nerve deficits. Moving all extremities. PSYCHIATRIC: Appropriate mood and affect; insight and judgment normal. Data Data Last Documented VS Vital Signs Date Time Temp Pulse Resp B/P (MAP) Pulse Ox O2 Delivery O2 Flow Rate FiO2 09/25/17 09:01 97.6 74 14 218/103 (141) 100 MDM Medical Decision Making Medical Screen Exam Complete: Yes Emergency Medical Condition: Yes Differential Diagnosis Hypertension, hypertensive urgency, hypertensive emergency, tinea Narrative Course This is a 57-year-old female who presents to the emergency department requesting a refill of her blood pressure medications. She has a rash that is annular all over her back which appears to me to be tinea capitis. Patient will be treated for her blood pressure. The importance of primary care follow- up was expressed to her. She also will be given clotrimazole for her rash. Diagnosis Primary Impression: Accelerated hypertension Additional Impression: Tinea corporis Referrals: [facility] Patient Instructions: General Instructions Additional Instructions: If you develop severe chest pain, shortness of breath, sweating, lightheadedness , dizziness or difficulty breathing return to the emergency department immediately. Followup with your primary care physician in 2-3 days if your symptoms are not resolved. Med/Other Pt SpecificInfo: Prescription(s) given Scripts Clotrimazole Topical (Clotrimazole Topical) 1% Soln 1 APPLIC TOPICAL BID for Fungal Infection, #30 ML 0 Refills Prov: Mera Hope MD 09/25/17 Lisinopril (Lisinopril) 40 Mg Tab 40 MG PO DAILY for Blood Pressure Management, #30 TAB 0 Refills Prov: Mera Hope MD 09/25/17 Clonidine (Clonidine) 0.2 Mg Tab 0.2 MG PO BID for Blood Pressure Management, #60 TAB 0 Refills Prov: Mera Hope MD 09/25/17 Disposition: 01 DISCHARGE HOME Condition: Stable Mera Hope MD Sep 25, 2017 09:39
== END 2017-09-25 09:55 | disposition home or self-care (01) ==
LOC: NEPD 08:59
DX: I10 Essential (primary) hypertension (principal); B35.4 Tinea corporis; D64.9 Anemia, unspecified; J45.909 Unspecified asthma, uncomplicated; F41.9 Anxiety disorder, unspecified; I42.9 Cardiomyopathy, unspecified; R01.1 Cardiac murmur, unspecified; F17.210 Nicotine dependence, cigarettes, uncomplicated; Z76.0 Encounter for issue of repeat prescription
CPT/HCPCS: 99283

== ENCOUNTER 2017-11-26 10:41 | Emergency (ER) | payer MEDICARE ==
[~2017-11-26] VITALS: Ht 170.2 cm; Wt 90.0 kg
[~2017-11-26 10:41] MED LIST changes: +CLOTR1%T TOPICAL; +CYCL10TA PO
[2017-11-26 10:50] VITALS: BP 172/79; PULSE 82; RESP 17; TEMP 98.4; O2SAT 97
[2017-11-26] MEDS ORDERED: LISI40TA PO ×2 (11:45→11:46)
[2017-11-26] MEDS ORDERED: CLON0.2T PO ×2 (11:45→11:46)
--- NOTE | 2017-11-26 11:45 | PD ---
HPI Chief Complaint: Musculoskeletal Complaint Time Seen by Provider: 11:31 Travel History International Travel<30 days: No Contact w/Intl Traveler<30days: No Traveled to known affect area: No History of Present Illness HPI 57-year-old female presents to the emergency department with 2 complaints. Her first complaint is left knee pain and swelling 1 month. Denies injury. Says it was x-rayed the last time she was here. Reviewed her medical record and did not see that her left knee was x-rayed. Denies paresthesias, loss of sensation , decreased range of motion, decreased strength to the affected extremity. Is ambulatory with a normal gait on the affected extremity. Has not taken any medications or try any treatments to alleviate her symptoms. Rates pain 7/10 with walking. No pain at rest. Her second medical complaint is request for medication refills on lisinopril and clonidine for her hypertension. Denies chest pain, shortness of breath, abdominal pain, nausea, vomiting, headache, feeling faint, change in vision, diaphoresis. No primary care provider. Has not followed up with orthopedic in regards to her knee. Allergies to penicillin. History of hypertension. Has no other medical complaints. No other modifying factors or associated signs and symptoms. PFSH Past Medical History Anemia: Yes Asthma: Yes Autoimmune Disease: No Blood Disorders: Yes Anxiety: Yes Heart Rhythm Problems: Yes (MURMUR) Cardiomyopathy: Yes Cardiovascular Problems: Yes Diminished Hearing: No Gastrointestinal Disorders: Yes Headaches: Yes (S/P CLOSED HEAD INJURY 1988. ) Hypertension: Yes Musculoskeletal: Yes (CHRONIC BACK PAIN) Neurologic: Yes Reproductive: Yes (OVARIAN CYST, FIBROID TUMOR.) Respiratory: Yes Immunizations Current: Yes Ulcer: Yes Tetanus Vaccination: < 5 Years Menopausal: Yes : 4 Para: 3 Miscarriage: 1 Past Surgical History AICD: No Appendectomy: No Arteriovenous Shunt: No Cholecystectomy: No Gynecologic Surgery: Yes (HYSTERECTOMY ) Hysterectomy: Yes Insulin Pump: No Neurologic Surgery: Yes Pacemaker: No Other Surgery: Yes Social History Alcohol Use: Yes (OCASSIONALLY) Tobacco Use: Yes (1/2 PPD) Substance Use: No Allergies-Medications (Allergen,Severity, Reaction): Coded Allergies: penicillin G (Unverified Allergy, Severe, SHAKING, RASH, ITCHING, 11/26/17) SHAKING Reported Meds & Prescriptions Reported Meds & Active Scripts Active Lisinopril 40 Mg Tab 40 Mg PO DAILY Clonidine (Clonidine HCl) 0.2 Mg Tab 0.2 Mg PO BID Review of Systems Except as stated in HPI: all other systems reviewed are Neg Physical Exam Narrative GENERAL: Well-nourished, well-developed black female patient, in no acute distress; afebrile, nontoxic-appearing SKIN: Warm and dry. HEAD: Atraumatic. Normocephalic. EYES: Pupils equal and round. No scleral icterus. No injection or drainage. ENT: Mucosa pink and moist. Airway patent. NECK: Trachea midline. CARDIOVASCULAR: Regular rate. RESPIRATORY: No accessory muscle use. GASTROINTESTINAL: Rounded. MUSCULOSKELETAL: Left knee nonedematous, nonerythematous, and without ecchymosis ; full range of motion and flexion to 90; point tenderness to the lateral aspect; joint stable with negative drawer test; no obvious deformity. Left lower extremity is supple and non-tense with 2+ pedal pulse and sensory intact and without erythema or edema. Ambulatory in room with a normal gait. No cyanosis. No obvious deformity. No edema. NEUROLOGICAL: Awake and alert. Oriented 3. No obvious cranial nerve deficits. Motor grossly within normal limits. Normal speech. PSYCHIATRIC: Appropriate mood and affect; insight and judgment normal. Data Data Last Documented VS Vital Signs Date Time Temp Pulse Resp B/P (MAP) Pulse Ox O2 Delivery O2 Flow Rate FiO2 11/26/17 10:50 98.4 82 17 172/79 (110) 97 Orders Orders Ed Discharge Order (11/26/17 11:46) [facility] Medical Decision Making Medical Screen Exam Complete: Yes Emergency Medical Condition: Yes Medical Record Reviewed: Yes Differential Diagnosis Arthritis, knee pain, medication refill Narrative Course 57-year-old female with left knee pain 1 month. Denies injury. I do not suspect fracture dislocation of the imaging is not necessary at this time. Prescriptions for lisinopril and clonidine provided for medication refill. Patient provided follow-up information for [facility]. Instructed patient to follow up with primary care provider. Patient verbalizes understanding and agreement with treatment plan. Patient is medically cleared and stable for discharge. Discussed reasons to return to the emergency department. Patient agrees with treatment plan. The patients vital signs are stable and the patient is stable for outpatient follow-up and treatment. Patient discharged home, stable and in no acute distress. Diagnosis Primary Impression: Left knee pain Qualified Codes: M25.562 - Pain in left knee Additional Impression: Medication refill Referrals: Orthopaedic Surgeon Primary Care Physician Patient Instructions: General Instructions, Knee Pain (ED), Medication Refill, ED Additional Instructions: Tylenol or ibuprofen as needed and as directed to reduce pain and inflammation Rest, ice, compress, and elevate extremity to decrease pain and inflammation Knee brace for support Avoid aggravating activity; increase activity as tolerated Follow-up with primary care provider Follow-up with orthopedics Return to the emergency department immediately with worsening symptoms Med/Other Pt SpecificInfo: Prescription(s) given Scripts Lisinopril (Lisinopril) 40 Mg Tab 40 MG PO DAILY for Blood Pressure Management, #30 TAB 0 Refills Prov: Doreen Glover 11/26/17 Clonidine (Clonidine) 0.2 Mg Tab 0.2 MG PO BID for Blood Pressure Management, #60 TAB 0 Refills Prov: Doreen Glover 11/26/17 Disposition: 01 DISCHARGE HOME Condition: Stable Doreen Glover Nov 26, 2017 11:45
== END 2017-11-26 13:10 | disposition home or self-care (01) ==
LOC: NEPK 10:41
DX: M25.562 Pain in left knee (principal); I10 Essential (primary) hypertension; F17.200 Nicotine dependence, unspecified, uncomplicated; Z76.0 Encounter for issue of repeat prescription
CPT/HCPCS: 99281

== ENCOUNTER 2017-12-24 15:38 | Emergency (ER) | payer MEDICARE, OTHER ==
[~2017-12-24] VITALS: Ht 170.2 cm; Wt 85.0 kg
[~2017-12-24 15:38] MED LIST changes: -CLOTR1%T TOPICAL; -CYCL10TA PO
[2017-12-24 15:40] VITALS: BP 205/94; PULSE 78; RESP 18; TEMP 98.6; O2SAT 100
[2017-12-24 15:57] VITALS: BP 169/81; PULSE 76; RESP 18; O2SAT 98
[2017-12-24] MEDS ORDERED: cloNIDine HCL 0.2 MG TAB PO ONE (16:00)
--- NOTE | 2017-12-24 16:24 | PD ---
HPI Chief Complaint: Headache Time Seen by Provider: 15:51 Travel History International Travel<30 days: No Contact w/Intl Traveler<30days: No Traveled to known affect area: No History of Present Illness HPI 57-year-old female states that she is off her clonidine 0.2 mg twice a day and lisinopril 40 mg once a day because she does not have insurance or primary currently. She denies any concurrent complaints other than frontal headache. She denies any thunderclap onset. She states she sometimes gets headaches like this when her blood pressure goes up. She denies specific modifying factors. She states she plans to call Medicaid to try to get her card so she can get a doctor for further refills. PFSH Past Medical History Anemia: Yes Arthritis: No Asthma: Yes Autoimmune Disease: No Blood Disorders: Yes Anxiety: Yes Depression: No Heart Rhythm Problems: Yes (MURMUR) Cancer: No Cardiomyopathy: Yes Cardiovascular Problems: Yes High Cholesterol: No Chemotherapy: No Chest Pain: No Congestive Heart Failure: No COPD: No Cerebrovascular Accident: No Diabetes: No Diminished Hearing: No Endocrine: No Gastrointestinal Disorders: Yes GERD: No Glaucoma: No Genitourinary: No Headaches: Yes (S/P CLOSED HEAD INJURY 1988. ) Hepatitis: No Hiatal Hernia: No Heparin Induced Thrombocytopen: No Hypertension: Yes Immune Disorder: No Implanted Vascular Access Dvce: No Kidney Stones: No Musculoskeletal: Yes (CHRONIC BACK PAIN) Neurologic: Yes Psychiatric: No Reproductive: Yes (OVARIAN CYST, FIBROID TUMOR.) Respiratory: Yes Immunizations Current: Yes Migraines: No Radiation Therapy: No Renal Failure: No Sickle Cell Disease: No Sleep Apnea: No Thyroid Disease: No Ulcer: Yes Menopausal: Yes : 4 Para: 3 Miscarriage: 1 Past Surgical History AICD: No Appendectomy: No Arteriovenous Shunt: No Cholecystectomy: No Gynecologic Surgery: Yes (HYSTERECTOMY ) Hysterectomy: Yes Insulin Pump: No Neurologic Surgery: Yes Pacemaker: No Other Surgery: Yes Social History Alcohol Use: Yes (OCASSIONALLY) Tobacco Use: Yes (1/2 PPD) Substance Use: No Allergies-Medications (Allergen,Severity, Reaction): Coded Allergies: penicillin G (Unverified Allergy, Severe, SHAKING, RASH, ITCHING, 12/24/17) SHAKING Reported Meds & Prescriptions Reported Meds & Active Scripts Active Lisinopril 40 Mg Tab 40 Mg PO DAILY 14 Days Clonidine (Clonidine HCl) 0.2 Mg Tab 0.2 Mg PO BID 14 Days Review of Systems Except as stated in HPI: all other systems reviewed are Neg Physical Exam Narrative GENERAL: 57-year-old female in no apparent distress SKIN: Focused skin assessment warm/dry. HEAD: Atraumatic. Normocephalic. EYES: Pupils equal and round. No scleral icterus. No injection or drainage. ENT: No nasal bleeding or discharge. Mucous membranes pink and moist. NECK: Trachea midline. No JVD. CARDIOVASCULAR: Regular rate and rhythm. No murmur appreciated. RESPIRATORY: No accessory muscle use. Clear to auscultation. Breath sounds equal bilaterally. GASTROINTESTINAL: Abdomen soft, non-tender, nondistended. Hepatic and splenic margins not palpable. MUSCULOSKELETAL: No obvious deformities. No clubbing. No cyanosis. No edema. NEUROLOGICAL: Awake and alert. No obvious cranial nerve deficits. Motor grossly within normal limits. Normal speech. PSYCHIATRIC: Appropriate mood and affect; insight and judgment normal. Data Data Last Documented VS Vital Signs Date Time Temp Pulse Resp B/P (MAP) Pulse Ox O2 Delivery O2 Flow Rate FiO2 12/24/17 15:57 76 18 169/81 (110) 98 Room Air 12/24/17 15:40 98.6 Orders Orders Clonidine (Catapres) (12/24/17 16:00) Ct Brain W/O Iv Contrast(Rout) (12/24/17 ) Ecg Monitoring (12/24/17 15:51) Oximetry (12/24/17 15:51) MDM Medical Decision Making Medical Screen Exam Complete: Yes Emergency Medical Condition: Yes Medical Record Reviewed: Yes (Past history confirmed) Differential Diagnosis Hypertensive urgency, medication refill, atypical intracranial abnormality Narrative Course Will check CT brain and dose with home clonidine and reevaluate Patient's blood pressure has started to come down and her headache has resolved. She is refusing CT brain and states she is not doing it no matter what. She understands I cannot rule out other emergent process and elects to leave AMA. AMA: The risks of leaving against medical advice without further evaluation treatment were discussed with the patient. These risks include cardiac dysfunction, cardiac dysrhythmia, possible heart attack, possible stroke or . The patient indicated understanding of these risks and appeared to have the capacity to make this decision. Diagnosis Primary Impression: Cephalalgia Qualified Codes: R51 - Headache Additional Impression: Hypertension Qualified Codes: I10 - Essential (primary) hypertension Patient Instructions: General Instructions Additional Instructions: keep blood pressure log, follow with a primary, take blood pressure medicine as directed Med/Other Pt SpecificInfo: Prescription(s) given Scripts Lisinopril (Lisinopril) 40 Mg Tab 40 MG PO DAILY for Blood Pressure Management for 14 Days, #14 TAB 0 Refills Prov: Monica Valerio MD 12/24/17 Clonidine (Clonidine) 0.2 Mg Tab 0.2 MG PO BID for Blood Pressure Management for 14 Days, #28 TAB 0 Refills Prov: Monica Valerio MD 12/24/17 Disposition: 01 DISCHARGE HOME Condition: Stable Monica Valerio MD December 24, 2017 16:24
[2017-12-24 16:35] VITALS: BP 190/91
[2017-12-24] MEDS ORDERED: CLON0.2T PO (16:57)
[2017-12-24] MEDS ORDERED: LISI40TA PO (16:57)
== END 2017-12-24 16:40 | disposition home or self-care (01) ==
LOC: NEPC 15:38
DX: R51 Headache (principal); I10 Essential (primary) hypertension; F17.200 Nicotine dependence, unspecified, uncomplicated
CPT/HCPCS: 99283

== ENCOUNTER 2017-12-31 19:38 | Emergency (ER) | payer MEDICARE, OTHER ==
[~2017-12-31] VITALS: Ht 170.2 cm; Wt 88.0 kg
[2017-12-31 21:17] VITALS: BP 154/70; PULSE 75; RESP 18; TEMP 99.2; O2SAT 96
[2017-12-31] MEDS ORDERED: KETOROLAC TROMETHAMINE 30 MG/ML (IVP) VIAL IV PUSH ONE (22:15)
[2017-12-31] MEDS ORDERED: SODIUM CHLORIDE 0.9% FLUSH 10 ML FLUSH IVF PRN (22:15)
--- NOTE | 2017-12-31 22:38 | RADRPT ---
EXAM DATE/TIME: 12/31/2017 22:14 [facility] COMPARISON: No previous studies available for comparison. INDICATIONS : Chest pain and short of breath. MEDICAL HISTORY : asthma. SURGICAL HISTORY : None. ENCOUNTER: Initial ACUITY: 3 days PAIN SCORE: 9/10 LOCATION: Bilateral chest FINDINGS: The heart size is within normal limits. The lungs are free of focal alveolar density. There is mild p roximal of the interstitium. No effusion is seen. CONCLUSION: Prominence of the interstitium which may represent mild edema. Ajit Bender MD on December 31, 2017 at 22:35 Board Certified Radiologist. This report was verified electronically.
[2017-12-31 23:00] VITALS: BP_SYST 150; BP_SYST 154; BP_DIAS 70; BP_DIAS 72
[2017-12-31 23:23] LABS: AUTOMATED NEUTROPHIL # 1.3 TH/MM3 (1.8-7.7); BASOPHIL % 0.9 % (0.0-2.0); EOSINOPHIL # 0.1 TH/MM3 (0-0.4); EOSINOPHIL % 2.3 % (0.0-4.0); HEMATOCRIT 39.4 % (35.0-46.0); HEMOGLOBIN 13.1 GM/DL (11.6-15.3); LYMPH % 41.7 % (9.0-44.0); LYMPHOCYTE # 1.5 TH/MM3 (1.0-4.8); MEAN CELL VOLUME 85.7 FL (80.0-100.0); MEAN CORPUSCULAR HEMOGLOBIN 28.4 PG (27.0-34.0); MEAN CORPUSCULAR HGB CONC 33.1 % (32.0-36.0); MEAN PLATELET VOLUME 8.8 FL (7.0-11.0); MONO % 18.4 % (0.0-8.0); MONOCYTE # 0.7 TH/MM3 (0-0.9); NEUT % 36.7 % (16.0-70.0); PLATELET COUNT 184 TH/MM3 (150-450); RED CELL DISTRIBUTION WIDTH 14.6 % (11.6-17.2); WHITE BLOOD COUNT 3.7 TH/MM3 (4.0-11.0)
[2017-12-31 23:43] LABS: ALBUMIN 3.4 GM/DL (3.4-5.0); ALT (GPT) 37 U/L (10-53); AST (GOT) 45 U/L (15-37); BICARBONATE 24.7 MEQ/L (21.0-32.0); BLOOD UREA NITROGEN 12 MG/DL (7-18); CALCIUM 8.6 MG/DL (8.5-10.1); CHLORIDE 102 MEQ/L (98-107); CREATININE 0.97 MG/DL (0.50-1.00); GLOMERULAR FILTRATION RATE 71 ML/MIN (>89); GLUCOSE,RANDOM 101 MG/DL (74-106); SODIUM (NA) 136 MEQ/L (136-145)
[2017-12-31 23:47] LABS: ALKALINE PHOSPHATASE 86 U/L (45-117); TOTAL BILIRUBIN ADULT 0.1 MG/DL (0.2-1.0); TOTAL PROTEIN 8.1 GM/DL (6.4-8.2); TROPONIN I LESS THAN 0.02 NG/ML (0.02-0.05)
[2018-01-01 00:13] VITALS: RESP 18
[2018-01-01] MEDS ORDERED: BENZ100 PO (00:30)
--- NOTE | 2018-01-01 00:30 | PD ---
HPI Chief Complaint: Cold / Flu Symptoms Time Seen by Provider: 21:53 Travel History International Travel<30 days: No Contact w/Intl Traveler<30days: No Traveled to known affect area: No History of Present Illness HPI Patient is a 57 year old female who comes in complaining of cough for 3 days. She says she coughs so hard she has pain to her chest and abdomen. She denies fever or chills. She denies any SOB. She is concerned that her blood pressure is high as well. She reports compliance with her medication. She says she has tried some over the counter cold medications without relief. Severity is mild to moderate. PFSH Past Medical History Anemia: Yes Arthritis: No Asthma: Yes Autoimmune Disease: No Blood Disorders: Yes Anxiety: Yes Depression: No Heart Rhythm Problems: Yes (MURMUR) Cancer: No Cardiomyopathy: Yes Cardiovascular Problems: Yes (HTN) High Cholesterol: No Chemotherapy: No Chest Pain: No Congestive Heart Failure: No COPD: No Cerebrovascular Accident: No Diabetes: No Diminished Hearing: No Endocrine: No Gastrointestinal Disorders: Yes GERD: No Glaucoma: No Genitourinary: No Headaches: Yes (S/P CLOSED HEAD INJURY 1988. ) Hepatitis: No Hiatal Hernia: No Heparin Induced Thrombocytopen: No Hypertension: Yes Immune Disorder: No Implanted Vascular Access Dvce: No Kidney Stones: No Musculoskeletal: Yes (CHRONIC BACK PAIN) Neurologic: Yes Psychiatric: No Reproductive: Yes (OVARIAN CYST, FIBROID TUMOR.) Respiratory: Yes Immunizations Current: Yes Migraines: No Radiation Therapy: No Renal Failure: No Sickle Cell Disease: No Sleep Apnea: No Thyroid Disease: No Ulcer: Yes Influenza Vaccination: No ?: Not Menopausal: Yes : 4 Para: 3 Miscarriage: 1 Past Surgical History AICD: No Appendectomy: No Arteriovenous Shunt: No Cholecystectomy: No Gynecologic Surgery: Yes (HYSTERECTOMY ) Hysterectomy: Yes Insulin Pump: No Neurologic Surgery: Yes Pacemaker: No Other Surgery: Yes Social History Alcohol Use: Yes (OCASSIONALLY) Tobacco Use: Yes (/2 PPD) Substance Use: No Allergies-Medications (Allergen,Severity, Reaction): Coded Allergies: penicillin G (Unverified Allergy, Severe, SHAKING, RASH, ITCHING, 12/24/17) SHAKING Reported Meds & Prescriptions Reported Meds & Active Scripts Active Lisinopril 40 Mg Tab 40 Mg PO DAILY 14 Days Clonidine (Clonidine HCl) 0.2 Mg Tab 0.2 Mg PO BID 14 Days Review of Systems Except as stated in HPI: all other systems reviewed are Neg General / Constitutional: No: Fever, Chills HENT: No: Lightheadedness Respiratory: Positive: Cough Musculoskeletal: No: Myalgias, Edema Skin: No Rash, No Change in Pigmentation Neurologic: No: Weakness, Dizziness, Syncope Physical Exam Narrative GENERAL: Awake and alert, in no acute distress. SKIN: Focused skin assessment warm/dry. HEAD: Atraumatic. Normocephalic. EYES: Pupils equal and round. No scleral icterus. ENT: Mucous membranes pink and moist. NECK: Trachea midline. No JVD. CARDIOVASCULAR: Regular rate and rhythm. No murmur appreciated. RESPIRATORY: No accessory muscle use. Clear to auscultation. Breath sounds equal bilaterally. GASTROINTESTINAL: Abdomen soft, non-tender, nondistended. MUSCULOSKELETAL: No obvious deformities. No clubbing. No cyanosis. No edema. NEUROLOGICAL: Awake and alert. No obvious cranial nerve deficits. Motor grossly within normal limits. Normal speech. PSYCHIATRIC: Appropriate mood and affect; insight and judgment normal. Data Data Last Documented VS Vital Signs Date Time Temp Pulse Resp B/P (MAP) Pulse Ox O2 Delivery O2 Flow Rate FiO2 01/01/18 00:13 18 12/31/17 23:39 97 Room Air 12/31/17 21:17 99.2 75 154/70 (98) Orders Orders Electrocardiogram (12/31/17 22:06) Ckmb (Isoenzyme) Profile (12/31/17 22:06) Complete Blood Count With Diff (12/31/17 22:06) Comprehensive Metabolic Panel (12/31/17 22:06) Prothrombin Time / Inr (Pt) (12/31/17 22:06) Act Partial Throm Time (Ptt) (12/31/17 22:06) Troponin I (12/31/17 22:06) Ecg Monitoring (12/31/17 22:06) Bilateral Bp Monitoring (12/31/17 22:06) Iv Access Insert/Monitor (12/31/17 22:06) Oximetry (12/31/17 22:06) Oxygen Administration (12/31/17 22:06) Sodium Chloride 0.9% Flush (Ns Flush) (12/31/17 22:15) Chest, Pa & Lat (12/31/17 22:06) Ketorolac Inj (Toradol Inj) (12/31/17 22:15) CKMB (12/31/17 23:00) CKMB% (12/31/17 23:00) Labs Laboratory Tests Test 12/31/17 23:00 White Blood Count 3.7 TH/MM3 Red Blood Count 4.60 MIL/MM3 Hemoglobin 13.1 GM/DL Hematocrit 39.4 % Mean Corpuscular Volume 85.7 FL Mean Corpuscular Hemoglobin 28.4 PG Mean Corpuscular Hemoglobin Concent 33.1 % Red Cell Distribution Width 14.6 % Platelet Count 184 TH/MM3 Mean Platelet Volume 8.8 FL Neutrophils (%) (Auto) 36.7 % Lymphocytes (%) (Auto) 41.7 % Monocytes (%) (Auto) 18.4 % Eosinophils (%) (Auto) 2.3 % Basophils (%) (Auto) 0.9 % Neutrophils # (Auto) 1.3 TH/MM3 Lymphocytes # (Auto) 1.5 TH/MM3 Monocytes # (Auto) 0.7 TH/MM3 Eosinophils # (Auto) 0.1 TH/MM3 Basophils # (Auto) 0.0 TH/MM3 CBC Comment DIFF FINAL Differential Comment Prothrombin Time 10.0 SEC Prothromb Time International Ratio 1.0 RATIO Activated Partial Thromboplast Time 31.6 SEC Blood Urea Nitrogen 12 MG/DL Creatinine 0.97 MG/DL Random Glucose 101 MG/DL Total Protein 8.1 GM/DL Albumin 3.4 GM/DL Calcium Level 8.6 MG/DL Alkaline Phosphatase 86 U/L Aspartate Amino Transf (AST/SGOT) 45 U/L Alanine Aminotransferase (ALT/SGPT) 37 U/L Total Bilirubin 0.1 MG/DL Sodium Level 136 MEQ/L Potassium Level 3.9 MEQ/L Chloride Level 102 MEQ/L Carbon Dioxide Level 24.7 MEQ/L Anion Gap 9 MEQ/L Estimat Glomerular Filtration Rate 71 ML/MIN Total Creatine Kinase 137 U/L Creatine Kinase MB 0.6 NG/ML Troponin I LESS THAN 0.02 NG/ML MDM Medical Decision Making Medical Screen Exam Complete: Yes Emergency Medical Condition: Yes Medical Record Reviewed: Yes Interpretation(s) ECG shows NSR at 64, no ST elevation or depression, normal intervals Differential Diagnosis URI vs allergies vs pneumonia Narrative Course Patient is a 57-year-old female who comes in complaining of cough. Exam shows no acute abnormalities. IV established, labs sent. Labs show no acute abnormalities. Chest x-ray performed shows no acute abnormalities. Last 24 hours Impressions Chest X-Ray 12/31/172205 Signed Impressions: Service Date/Time: Sunday, December 31, 2017 22:14 - CONCLUSION: Prominence of the interstitium which may represent mild edema. Ajit Bender MD Patient given Toradol, she reports feeling better. She will be discharged with a prescription for Tessalon Perles. She is advised to follow-up with her doctor. Advised return to the ED as needed for any worsening symptoms. Diagnosis Primary Impression: Cough Patient Instructions: Acute Cough (ED), General Instructions Additional Instructions: Follow-up with a primary care doctor. Take cough medicine as needed. Return to the ED as needed for any worsening symptoms. Scripts Benzonatate (Tessalon Perles) 100 Mg Cap 100 MG PO TID Y for COUGH for 5 Days, CAP 0 Refills Prov: Akosua Falcon MD 01/01/18 Disposition: 01 DISCHARGE HOME Condition: Stable Akosua Falcon MD January 01, 2018 00:30
--- NOTE | 2018-01-01 19:41 | EKG ---
Date Performed: 12/31/2017 Time Performed: 22:52:20 PTAGE: 57 years EKG: Sinus rhythm POSSIBLE LEFT ATRIAL ENLARGEMENT BORDERLINE ECG Since the PREVIOUS TRACING , no significant change noted PREVIOUS TRACIN04/17/2017 14.57 DOCTOR: Connor Groves Interpretating Date/Time 01/01/2018 19:40:14
[2018-01-02] MEDS ORDERED: AMLO5TAB2 PO (14:16)
[2018-01-02] MEDS ORDERED: LISI40TA PO (14:16)
== END 2018-01-01 01:02 | disposition home or self-care (01) ==
LOC: NEPE 19:38
DX: R05 Cough (principal); I10 Essential (primary) hypertension; F17.200 Nicotine dependence, unspecified, uncomplicated; R07.9 Chest pain, unspecified
CPT/HCPCS: 71046; 80053; 82550; 82552; 84484; 85025; 85610; 85730; 93005; 96374; 99285; J1885

== ENCOUNTER 2018-01-02 07:40 | Observation (INO) | payer MEDICARE, MEDICAID ==
[2018-01-02] VITALS (10 sets, daily range): BP systolic 129–194; BP diastolic 69–101; PULSE 60–91; RESP 16–18; TEMP 97.8–99.5; O2SAT 96–100
[~2018-01-02] VITALS: Ht 170.2 cm; Wt 86.0 kg
[~2018-01-02 07:40] MED LIST changes: +BENZ100 PO
[2018-01-02] MEDS ORDERED: SODIUM CHLORIDE 0.9% FLUSH 10 ML FLUSH IVF PRN (08:00)
[2018-01-02] MEDS ORDERED: cloNIDine HCL 0.2 MG TAB PO ONE (08:00)
[2018-01-02] MEDS ORDERED: LISINOPRIL 20 MG TAB PO ONE (08:00)
[2018-01-02] MEDS ORDERED: ASPIRIN 81 MG CHEW TAB CHEW ONE (08:00)
--- NOTE | 2018-01-02 08:25 | PD ---
HPI Chief Complaint: Chest Pain Time Seen by Provider: 07:54 Travel History International Travel<30 days: No Contact w/Intl Traveler<30days: No Traveled to known affect area: No History of Present Illness HPI 57-year-old female with history of hypertension, presents today with complaints of chest pain. Patient states she has had it intermittently over last several days. Patient reports the pain as sharp and dull. She denies any radiation. She denies any exacerbating features. She states the pain kept her up at night. Patient states she did not take her lisinopril 40 mg dose or clonidine 0.2 mg dose today. Her blood pressure in triage initially was within normal limits however it is gone up into the 170s over 100. Patient denies any shortness of breath. There is no nausea or diaphoresis. Patient reports she had a stress test over a year ago but it was not performed here. There are no other complaints at time of examination. PFSH Past Medical History Anemia: Yes Arthritis: No Asthma: Yes Autoimmune Disease: No Blood Disorders: Yes Anxiety: Yes Depression: No Heart Rhythm Problems: Yes (MURMUR) Cancer: No Cardiomyopathy: Yes Cardiovascular Problems: Yes (HTN) High Cholesterol: No Chemotherapy: No Chest Pain: No Congestive Heart Failure: No COPD: No Cerebrovascular Accident: No Diabetes: No Diminished Hearing: No Endocrine: No Gastrointestinal Disorders: Yes GERD: No Glaucoma: No Genitourinary: No Headaches: Yes (S/P CLOSED HEAD INJURY 1988. ) Hepatitis: No Hiatal Hernia: No Heparin Induced Thrombocytopen: No Hypertension: Yes Immune Disorder: No Implanted Vascular Access Dvce: No Kidney Stones: No Musculoskeletal: Yes (CHRONIC BACK PAIN) Neurologic: Yes Psychiatric: No Reproductive: Yes (OVARIAN CYST, FIBROID TUMOR.) Respiratory: Yes Immunizations Current: Yes Migraines: No Radiation Therapy: No Renal Failure: No Sickle Cell Disease: No Sleep Apnea: No Thyroid Disease: No Ulcer: Yes ?: Not Menopausal: Yes : 4 Para: 3 Miscarriage: 1 Past Surgical History AICD: No Appendectomy: No Arteriovenous Shunt: No Cholecystectomy: No Gynecologic Surgery: Yes (HYSTERECTOMY ) Hysterectomy: Yes Insulin Pump: No Neurologic Surgery: Yes Pacemaker: No Other Surgery: Yes Social History Alcohol Use: No Tobacco Use: Yes (1/2 PPD) Substance Use: No Allergies-Medications (Allergen,Severity, Reaction): Coded Allergies: penicillin G (Unverified Allergy, Severe, SHAKING, RASH, ITCHING, 01/02/18) SHAKING Reported Meds & Prescriptions Reported Meds & Active Scripts Active Amlodipine (Amlodipine Besylate) 5 Mg Tab 5 Mg PO DAILY Lisinopril 40 Mg Tab 40 Mg PO DAILY 30 Days Clonidine (Clonidine HCl) 0.2 Mg Tab 0.2 Mg PO BID 14 Days Review of Systems Except as stated in HPI: all other systems reviewed are Neg Eyes: No: Diploplia, Blurred Vision HENT: No: Headaches, Neck Pain Cardiovascular: Positive: Chest Pain or Discomfort, No: Irregular Rhythm Respiratory: No: Cough, Shortness of Breath Gastrointestinal: No: Nausea, Vomiting, Abdominal Pain Genitourinary: No: Dysuria, Flank Pain Musculoskeletal: No: Myalgias, Arthralgias Neurologic: No: Weakness, Dizziness, Syncope, Headache Physical Exam Narrative GENERAL: Well-developed well-nourished female in no acute respiratory distress. SKIN: Focused skin assessment warm/dry. HEAD: Atraumatic. Normocephalic. EYES: No scleral icterus. No injection or drainage. ENT: No nasal bleeding or discharge. Mucous membranes pink and moist. NECK: Trachea midline. No JVD. Supple. CARDIOVASCULAR: Regular rate and rhythm. No murmur appreciated. RESPIRATORY: No accessory muscle use. Clear to auscultation. Breath sounds equal bilaterally. GASTROINTESTINAL: Abdomen soft, non-tender, nondistended. MUSCULOSKELETAL: No obvious deformities. No clubbing. No cyanosis. No edema. NEUROLOGICAL: Awake and alert. No obvious cranial nerve deficits. Motor grossly within normal limits. Normal speech. Data Data Last Documented VS Vital Signs Date Time Temp Pulse Resp B/P (MAP) Pulse Ox O2 Delivery O2 Flow Rate FiO2 01/02/18 08:19 73 17 194/93 (126) 98 Nasal Cannula 2.00 01/02/18 07:44 99.5 Orders Orders Electrocardiogram (01/02/18 ) Lisinopril (Prinivil) (01/02/18 08:00) Clonidine (Catapres) (01/02/18 08:00) Aspirin Chew (Aspirin Chew) (01/02/18 08:00) Basic Metabolic Panel (Bmp) (01/02/18 07:59) Ckmb (Isoenzyme) Profile (01/02/18 07:59) Complete Blood Count With Diff (01/02/18 07:59) Prothrombin Time / Inr (Pt) (01/02/18 07:59) Act Partial Throm Time (Ptt) (01/02/18 07:59) Troponin I (01/02/18 07:59) Ecg Monitoring (01/02/18 07:59) Bilateral Bp Monitoring (01/02/18 07:59) Iv Access Insert/Monitor (01/02/18 07:59) Oximetry (01/02/18 07:59) Oxygen Administration (01/02/18 07:59) Sodium Chloride 0.9% Flush (Ns Flush) (01/02/18 08:00) CKMB (01/02/18 08:19) CKMB% (01/02/18 08:19) Admit Order (Ed Use Only) (01/02/18 10:27) Labs Laboratory Tests Test 01/02/18 08:19 White Blood Count 3.9 TH/MM3 Red Blood Count 4.55 MIL/MM3 Hemoglobin 12.9 GM/DL Hematocrit 39.0 % Mean Corpuscular Volume 85.6 FL Mean Corpuscular Hemoglobin 28.4 PG Mean Corpuscular Hemoglobin Concent 33.2 % Red Cell Distribution Width 14.4 % Platelet Count 212 TH/MM3 Mean Platelet Volume 9.4 FL Neutrophils (%) (Auto) 32.1 % Lymphocytes (%) (Auto) 52.3 % Monocytes (%) (Auto) 12.4 % Eosinophils (%) (Auto) 2.5 % Basophils (%) (Auto) 0.7 % Neutrophils # (Auto) 1.2 TH/MM3 Lymphocytes # (Auto) 2.0 TH/MM3 Monocytes # (Auto) 0.5 TH/MM3 Eosinophils # (Auto) 0.1 TH/MM3 Basophils # (Auto) 0.0 TH/MM3 CBC Comment DIFF FINAL Differential Comment Prothrombin Time 10.1 SEC Prothromb Time International Ratio 1.0 RATIO Activated Partial Thromboplast Time 31.4 SEC Blood Urea Nitrogen 9 MG/DL Creatinine 0.86 MG/DL Random Glucose 130 MG/DL Calcium Level 8.7 MG/DL Sodium Level 136 MEQ/L Potassium Level 3.6 MEQ/L Chloride Level 105 MEQ/L Carbon Dioxide Level 21.7 MEQ/L Anion Gap 9 MEQ/L Estimat Glomerular Filtration Rate 82 ML/MIN Total Creatine Kinase 183 U/L Creatine Kinase MB 1.6 NG/ML Troponin I LESS THAN 0.02 NG/ML MDM Medical Decision Making Medical Screen Exam Complete: Yes Emergency Medical Condition: Yes Differential Diagnosis ACS versus musculoskeletal pain versus pleurisy versus pulmonary embolus Narrative Course 57-year-old female with a history of hypertension, presents today with complaints of chest pain. Patient reports that she has been out of her medication. Patient has been here 2 times previously within the last week. There is no evidence of acute ST elevation or depression on chest x-ray. Cardiac enzymes are within normal limits. Given patient's presentation and medication noncompliance, she will be admitted to the chest pain center for rule out protocol. Patient is amenable to the plan. Diagnosis Primary Impression: Chest pain Additional Impression: Hypertension Admitting Information Admitting Physician Requests: Observation Scripts Amlodipine (Amlodipine) 5 Mg Tab 5 MG PO DAILY for Blood Pressure Management, #30 TAB 1 Refill Prov: Tari Friend 01/02/18 Lisinopril (Lisinopril) 40 Mg Tab 40 MG PO DAILY for Blood Pressure Management for 30 Days, #30 TAB 1 Refill Prov: Tari Friend 01/02/18 Mateo Centeno MD January 02, 2018 08:25
[2018-01-02 08:40] LABS: AUTOMATED NEUTROPHIL # 1.2 TH/MM3 (1.8-7.7); BASOPHIL % 0.7 % (0.0-2.0); EOSINOPHIL # 0.1 TH/MM3 (0-0.4); EOSINOPHIL % 2.5 % (0.0-4.0); HEMOGLOBIN 12.9 GM/DL (11.6-15.3); LYMPH % 52.3 % (9.0-44.0); MEAN CELL VOLUME 85.6 FL (80.0-100.0); MEAN CORPUSCULAR HEMOGLOBIN 28.4 PG (27.0-34.0); MEAN CORPUSCULAR HGB CONC 33.2 % (32.0-36.0); MEAN PLATELET VOLUME 9.4 FL (7.0-11.0); MONO % 12.4 % (0.0-8.0); MONOCYTE # 0.5 TH/MM3 (0-0.9); NEUT % 32.1 % (16.0-70.0); PLATELET COUNT 212 TH/MM3 (150-450); RED BLOOD COUNT 4.55 MIL/MM3 (4.00-5.30); RED CELL DISTRIBUTION WIDTH 14.4 % (11.6-17.2); WHITE BLOOD COUNT 3.9 TH/MM3 (4.0-11.0)
[2018-01-02 08:46] LABS: BICARBONATE 21.7 MEQ/L (21.0-32.0); BLOOD UREA NITROGEN 9 MG/DL (7-18); CALCIUM 8.7 MG/DL (8.5-10.1); CHLORIDE 105 MEQ/L (98-107); CREATININE 0.86 MG/DL (0.50-1.00); GLOMERULAR FILTRATION RATE 82 ML/MIN (>89); GLUCOSE,RANDOM 130 MG/DL (74-106); SODIUM (NA) 136 MEQ/L (136-145)
[2018-01-02 08:47] LABS: PROTHROMBIN TIME - PATIENT 10.1 SEC (9.8-11.6)
[2018-01-02 08:51] LABS: TROPONIN I LESS THAN 0.02 NG/ML (0.02-0.05)
[2018-01-02] MEDS ORDERED: ONDANSETRON HCL 4 MG/2 ML VIAL IV PUSH PRN (11:00)
[2018-01-02] MEDS ORDERED: NITROGLYCERIN 0.4 MG SL 25 TABS/BTL SL PRN (11:00)
[2018-01-02] MEDS ORDERED: ONDANSETRON ODT 4 MG TAB PO PRN (11:30)
[2018-01-02 12:16] LABS: TROPONIN I LESS THAN 0.02 NG/ML (0.02-0.05)
--- NOTE | 2018-01-02 12:41 | HHI.HP ---
HPI Primary Care Physician Priscila Block MD Chief Complaint Chest pain History of Present Illness 55-year-old female with history of hypertension presents emergency room for further evaluation chest pain. Onset Friday. Location substernal. Characterized as sharp and tight. Severity moderate. No radiation. Duration generally last 1 hour. Associated symptoms include mild shortness of breath and wheezing. No associated symptoms of nausea, vomiting, or diaphoresis. Precipitating factors unknown, although often occurs after coughing. Become ill on Friday with nonproductive cough, nasal congestion, and fever. Continues to have a good appetite. Denies sore throat, nausea, vomiting, or diarrhea. No current chest discomfort. Review of Systems General: No fatigue or weakness. Fever, malaise, nasal congestion, and nonproductive cough since Friday. HEENT: current nasal congestion, no headache CV: As stated above, No current chest pain or pressure. No palpitations or dizziness. RESP: Intermittent "slight" SOB with accompanying nonproductive cough and wheeze since Friday. History of asthma as a child. GI: No nausea, vomiting, bowel changes, diarrhea, constipation, pain, distention , melena, blood in the stool. No change in appetite. : No dysuria, urgency, frequency EXT: No lower leg edema, no paraesthesias MS: No discomfort, injury, or change in ROM NEURO: No difficulty with balance, LOC, motor/sensory deficits PSYCH: No anxiety or depression SKIN: No rashes, no concerning lesions Past Family Social History Allergies: Coded Allergies: penicillin G (Unverified Allergy, Severe, SHAKING, RASH, ITCHING, 01/02/18) SHAKING Past Medical History Hypertension Past Surgical History Hysterectomy Reported Medications Reported Meds & Active Scripts Active Lisinopril 40 Mg Tab 40 Mg PO DAILY 14 Days Clonidine (Clonidine HCl) 0.2 Mg Tab 0.2 Mg PO BID 14 Days Active Ordered Medications Current Medications Medications (Trade) Dose Ordered Sig/Stevie Route Start Time Stop Time Status Last Admin (NS Flush) 2 ml UNSCH PRN IVF 01/02/18 08:00 (NS Flush) 2 ml BID IV FLUSH 01/02/18 21:00 (Tylenol) 500 mg Q4H PRN PO 01/02/18 11:30 (Nitrostat Sl) 0.4 mg Q5M PRN SL 01/02/18 11:00 (Aspirin) 325 mg DAILY PO 5/12/18 09:00 (Zofran Odt) 4 mg Q6H PRN PO 01/02/18 11:30 Family History Noncontributory for early onset cardiovascular disease. Social History Known hypertension. No known hyperlipidemia, diabetes, or coronary artery disease Current smoker one half pack daily. Smoked most of her adult life. Denies any alcohol or illegal drug use. Endorses sedentary lifestyle, reports she is unemployed due to disability. Past cardiac testing 06/22/2009 Lexiscan-No evidence of infarct or ischemia. EF 65% Physical Exam Vital Signs Vital Signs Date Time Temp Pulse Resp B/P (MAP) Pulse Ox O2 Delivery O2 Flow Rate FiO2 01/02/18 11:17 97 Nasal Cannula 1.00 01/02/18 10:40 60 16 131/69 (89) 98 Nasal Cannula 2.00 01/02/18 08:19 73 17 194/93 (126) 98 Nasal Cannula 2.00 01/02/18 08:18 98 Nasal Cannula 2.00 01/02/18 07:51 77 01/02/18 07:51 79 176/101 (126) 01/02/18 07:44 99.5 87 18 129/87 (101) 100 Physical Exam GENERAL: Alert WN, WD, NAD, pleasant, -[place] female HEAD: NC, AT EYES: Sclera clear, conjunctiva without injection, pupils equal and round ENT: Mucous membranes pink and moist NECK: Supple, no masses, trachea midline CV: RRR, without murmur, rub, gallop, no JVD, S1-S2 no S3-S4. RESP: Wheezing and rhonchi throughout, speaking in full sentences, nonlabored, symmetrical chest rise ABD: Soft, NT, ND, no masses, positive bowel tones EXT: Pulses +2x4, no dependent edema MS: Normal tone x4 extremities, nontender, no obvious deformities, full range of motion NEURO: CN II through CN XII grossly intact, motor strength 5/5 PSYCH: A+O x3, flat affect, appropriate speech, mood, insight and judgment SKIN: Normal turgor, normal texture, no lesions, no rashes Laboratory Laboratory Tests Test 01/02/18 08:19 01/02/18 11:26 White Blood Count 3.9 Red Blood Count 4.55 Hemoglobin 12.9 Hematocrit 39.0 Mean Corpuscular Volume 85.6 Mean Corpuscular Hemoglobin 28.4 Mean Corpuscular Hemoglobin Concent 33.2 Red Cell Distribution Width 14.4 Platelet Count 212 Mean Platelet Volume 9.4 Neutrophils (%) (Auto) 32.1 Lymphocytes (%) (Auto) 52.3 Monocytes (%) (Auto) 12.4 Eosinophils (%) (Auto) 2.5 Basophils (%) (Auto) 0.7 Neutrophils # (Auto) 1.2 Lymphocytes # (Auto) 2.0 Monocytes # (Auto) 0.5 Eosinophils # (Auto) 0.1 Basophils # (Auto) 0.0 CBC Comment DIFF FINAL Differential Comment Prothrombin Time 10.1 Prothromb Time International Ratio 1.0 Activated Partial Thromboplast Time 31.4 Blood Urea Nitrogen 9 Creatinine 0.86 Random Glucose 130 Calcium Level 8.7 Sodium Level 136 Potassium Level 3.6 Chloride Level 105 Carbon Dioxide Level 21.7 Anion Gap 9 Estimat Glomerular Filtration Rate 82 Total Creatine Kinase 183 156 Creatine Kinase MB 1.6 1.0 Troponin I LESS THAN 0.02 LESS THAN 0.02 Result Diagram: 01/02/1881801/02/18818 Course EKG NSR, no st t segment changes Caprini VTE Risk Assessment Caprini VTE Risk Assessment: No/Low Risk (score <= 1) Caprini Risk Assessment Model Point Value = 1 Point Value = 2 Point Value = 3 Point Value = 5 Age 41-60 Minor surgery BMI > 25 kg/m2 Swollen legs Varicose veins or History of unexplained or recurrent spontaneous Oral contraceptives or hormone replacement Sepsis (< 1 month) Serious lung disease, including pneumonia (< 1 month) Abnormal pulmonary function Acute myocardial infarction Congestive heart failure (< 1 month) History of inflammatory bowel disease Medical patient at bed rest Age 61-74 Arthroscopic surgery Major open surgery (> 45 min) Laparoscopic surgery (> 45 min) Malignancy Confined to bed (> 72 hours) Immobilizing plaster cast Central venous access Age >= 75 History of VTE Family history of VTE Factor V Leiden Prothrombin [id number] Lupus anticoagulant Anticardiolipin antibodies Elevated serum homocysteine Heparin-induced thrombocytopenia Other congenital or acquired thrombophilia Stroke (< 1 month) Elective arthroplasty Hip, pelvis, or leg fracture Acute spinal cord injury (< 1 month) Prophylaxis Regimen Total Risk Factor Score Risk Level Prophylaxis Regimen 0-1 Low Early ambulation 2 Moderate Order ONE of the following: *Sequential Compression Device (SCD) *Heparin 5000 units SQ BID 3-4 Higher Order ONE of the following medications: *Heparin 5000 units SQ TID *Enoxaparin/Lovenox 40 mg SQ daily (WT < 150 kg, CrCl > 30 mL/min) *Enoxaparin/Lovenox 30 mg SQ daily (WT < 150 kg, CrCl > 10-29 mL/min) *Enoxaparin/Lovenox 30 mg SQ BID (WT < 150 kg, CrCl > 30 mL/min) AND/OR *Sequential Compression Device (SCD) 5 or more Highest Order ONE of the following medications: *Heparin 5000 units SQ TID (Preferred with Epidurals) *Enoxaparin/Lovenox 40 mg SQ daily (WT < 150 kg, CrCl > 30 mL/min) *Enoxaparin/Lovenox 30 mg SQ daily (WT < 150 kg, CrCl > 10-29 mL/min) *Enoxaparin/Lovenox 30 mg SQ BID (WT < 150 kg, CrCl > 30 mL/min) AND *Sequential Compression Device (SCD) Assessment and Plan Assessment and Plan #1 Atypical chest pain-admitted chest pain center. Rule out ACS with 3 sets of EKGs and cardiac enzymes. Seen and evaluated by Dr. Chema Block. Plan for Lexiscan in a.m. after ACS ruled out. If Lexiscan is non-ischemic plans to be discharged home with follow-up with PCP. Patient agreeable plan of care. #2 Bronchitis-albuterol nebulizers every 6 hours and every 2 as needed as needed , guaifenesin 600 mg twice daily, smoking cessation discussed #3 Hypertension-continue lisinopril 40 mg daily, begin amlodipine 5 mg, discontinue clonidine. Amlodipine prescription will be provided upon discharge. #4 Tobacco use-strongly encouraged and stressed importance of tobacco cessation. Instructed to quit smoking. Tari Friend January 02, 2018 12:41
[2018-01-02] MEDS ORDERED: RESP: ALBUTEROL 2.5 MG/3 ML NEB (PRN) NEB (13:15)
--- NOTE | 2018-01-02 14:03 | EKG ---
Date Performed: 01/02/2018 Time Performed: 07:52:04 PTAGE: 57 years EKG: Sinus rhythm INTERPRETATION BASED ON A DEFAULT AGE OF 40 YEARS PREVIOUS TRACING : 12/31/2017 22.52 Since previous tracing, no significant change noted DOCTOR: Chema Block Interpretating Date/Time 01/02/2018 14:02:20
--- NOTE | 2018-01-02 14:05 | EKG ---
Date Performed: 01/02/2018 Time Performed: 11:34:26 PTAGE: 57 years EKG: Sinus rhythm MINIMAL VOLTAGE CRITERIA FOR LVH, CONSIDER NORMAL VARIANT BORDERLINE ECG PREVIOUS TRACING : 01/02/2018 07.52 Since previous tracing, no significant change noted DOCTOR: Chema Block Interpretating Date/Time 01/02/2018 14:05:06
[2018-01-02] MEDS ORDERED: AMLO5TAB2 PO (14:16)
[2018-01-02] MEDS ORDERED: LISI40TA PO (14:16)
--- NOTE | 2018-01-02 14:45 | RADRPT ---
EXAM DATE/TIME: 01/02/2018 14:25 [facility] COMPARISON: CHEST SINGLE AP, April 14, 2015, 19:35. INDICATIONS : Midchest pain and shortness of breath. MEDICAL HISTORY : Hypertension. SURGICAL HISTORY : Hysterectomy. ENCOUNTER: Initial ACUITY: 1 week PAIN SCORE: 5/10 LOCATION: Bilateral chest FINDINGS: Minimal retrocardiac parenchymal changes improved from comparison study. Right lung clear.. The car diomediastinal contours are unremarkable. Osseous structures are intact. CONCLUSION: Negative for acute process Kevin Rey MD FACR on January 02, 2018 at 14:42 Board Certified Radiologist. This report was verified electronically.
[2018-01-02] MEDS: guaiFENesin E.R. 600 MG TAB PO SCH ×2 (15:13→20:18)
[2018-01-02 15:53] LABS: TROPONIN I LESS THAN 0.02 NG/ML (0.02-0.05)
[2018-01-02] MEDS ORDERED: amLODIPine BESYLATE 5 MG TAB PO ONE ×2 (17:15→21:00)
[2018-01-02] MEDS: RESP: ALBUTEROL 2.5 MG/3 ML NEB (SCH) NEB ×2 (17:37→19:48)
[2018-01-02] MEDS: ACETAMINOPHEN 500 MG CPLT PO PRN ×2 (17:48→22:13)
[2018-01-02] MEDS: SODIUM CHLORIDE 0.9% FLUSH 10 ML FLUSH IV FLUSH SCH (20:18)
[2018-01-02] MEDS ORDERED: TEMAZEPAM 15 MG CAP PO ONE (21:00)
[2018-01-03 00:04] VITALS: BP 141/67; PULSE 68; RESP 16; O2SAT 95
[2018-01-03 03:00] VITALS: PULSE 74
[2018-01-03 03:22] VITALS: BP 160/70; PULSE 69; RESP 16; TEMP 98.6; O2SAT 99
[2018-01-03] MEDS: RESP: ALBUTEROL 2.5 MG/3 ML NEB (SCH) NEB ×2 (03:51→08:37)
[2018-01-03] MEDS: ACETAMINOPHEN 500 MG CPLT PO PRN (04:05)
[2018-01-03 07:18] VITALS: O2SAT 93
[2018-01-03 07:28] VITALS: PULSE 70
[2018-01-03 08:12] VITALS: BP 151/81; PULSE 75; RESP 16; TEMP 98.4; O2SAT 93
[2018-01-03] MEDS: guaiFENesin E.R. 600 MG TAB PO SCH (08:36)
[2018-01-03] MEDS: SODIUM CHLORIDE 0.9% FLUSH 10 ML FLUSH IV FLUSH SCH (08:37)
[2018-01-03] MEDS ORDERED: amLODIPine BESYLATE 5 MG TAB PO SCH (09:00)
[2018-01-03] MEDS ORDERED: ASPIRIN 325 MG TAB PO SCH (09:00)
[2018-01-03] MEDS ORDERED: REGADENOSON INJ 0.4 MG/5 ML SYR ONE (09:17)
--- NOTE | 2018-01-03 09:35 | PD.CARD.PN ---
Subjective Subjective Remarks Patient was seen previously by Tari and Dr. Block with a planned stress test this morning. She has ruled out for ACS and was transferred for stress testing this morning. We received a call [facility] indicating that she was extremely panicked and having difficulty dealing with the test. Will respond an attempt to help her deal with the issue so that effective testing can be carried out. Objective Medications Current Medications Medications (Trade) Dose Ordered Sig/Stevie Route Start Time Stop Time Status Last Admin (NS Flush) 2 ml UNSCH PRN IVF 01/02/18 08:00 (NS Flush) 2 ml BID IV FLUSH 01/02/18 21:00 01/03/18 08:37 (Tylenol) 500 mg Q4H PRN PO 01/02/18 11:30 01/03/18 04:05 (Nitrostat Sl) 0.4 mg Q5M PRN SL 01/02/18 11:00 (Aspirin) 325 mg DAILY PO 01/03/18 09:00 01/03/18 08:36 (Zofran Odt) 4 mg Q6H PRN PO 01/02/18 11:30 (Albuterol Neb) 2.5 mg Q6HR NEB NEB 01/02/18 13:30 01/03/18 08:37 (Albuterol Neb) 2.5 mg Q2HR NEB PRN NEB 01/02/18 13:15 (Mucinex Er) 600 mg BID PO 01/02/18 15:00 01/03/18 08:36 (Norvasc) 5 mg DAILY PO 01/03/18 09:00 01/03/18 08:37 Vital Signs / I&O Vital Signs Date Time Temp Pulse Resp B/P (MAP) Pulse Ox O2 Delivery O2 Flow Rate FiO2 01/03/18 08:12 98.4 75 16 151/81 (104) 93 01/03/18 07:28 70 01/03/18 07:18 93 21 01/03/18 05:05 18 01/03/18 03:22 98.6 69 16 160/70 (100) 99 01/03/18 03:00 74 01/03/18 00:04 68 16 141/67 (91) 95 01/02/18 23:27 98.1 91 16 188/81 (116) 96 01/02/18 19:50 97 21 01/02/18 19:45 98.0 76 17 172/79 (110) 96 01/02/18 16:21 97.8 80 18 160/72 (101) 96 01/02/18 15:45 71 01/02/18 13:50 01/02/18 11:17 97 Nasal Cannula 1.00 01/02/18 10:40 60 16 131/69 (89) 98 Nasal Cannula 2.00 I/O 01/02/18 01/02/18 01/02/18 01/03/18 01/03/18 01/03/18 07:00 15:00 23:00 07:00 15:00 23:00 Intake Total 480 ml Balance 480 ml Intake Oral 480 ml # Voids 1 Laboratory Laboratory Tests Test 01/02/18 11:26 01/02/18 14:58 Total Creatine Kinase 156 U/L 141 U/L Creatine Kinase MB 1.0 NG/ML 1.0 NG/ML Troponin I LESS THAN 0.02 NG/ML LESS THAN 0.02 NG/ML Arnaldo Garcia MD January 03, 2018 09:34
--- NOTE | 2018-01-03 09:39 | EKG ---
Date Performed: 01/02/2018 Time Performed: 14:48:45 PTAGE: 57 years EKG: Sinus rhythm WITH FIRST DEGREE AV BLOCK MINIMAL VOLTAGE CRITERIA FOR LVH, CONSIDER NORMAL VARIANT ABNORMAL ECG IN TERPRETATION BASED ON A DEFAULT AGE OF 40 YEARS Poor R-wave progression anterior precordium cannot ru le out previous injury but largely unchanged NO PREVIOUS TRACING DOCTOR: Arnaldo Garcia Interpretating Date/Time 01/03/2018 09:38:06
--- NOTE | 2018-01-03 11:34 | RADRPT ---
EXAM DATE/TIME: 01/03/2018 09:12 [facility] COMPARISON: No previous studies available for comparison. INDICATIONS : Substernal chest pain. Angina. DOSE: 25.9 mCi Tc99m Myoview at stress. 8.7 mCi Tc99m Myoview at rest. 0.4 mg Lexiscan STRESS SYMPTOMS: Shortness of breath. EJECTION FRACTION: > 70% MEDICAL HISTORY : Hypertension. SURGICAL HISTORY : Hysterectomy. ENCOUNTER: Initial ACUITY: 1 day PAIN SCALE: 3/10 LOCATION: Substernal chest TECHNIQUE: The patient underwent pharmacologic stress with infusion of prescribed dose. Continuous ECG tracing was monitored during stress. Gated SPECT imaging was performed after stress and conventional SPECT i maging was performed at rest. The examination was performed on a SPECT/CT scanner, both attenuation and non-corrected datasets were reviewed. FINDINGS: DISTRIBUTION: The maximum perfused segment at stress is in the lateral wall. PERFUSION STUDY: The pattern of perfusion at stress is within normal limits. GATED STUDY: There is intact wall motion and thickening without hypokinetic or dyskinetic segments. CONCLUSION: Normal exam.. RISK CATEGORY: Low risk. Mariana Westbrook MD on January 03, 2018 at 11:30 Board Certified Radiologist. This report was verified electronically.
--- NOTE | 2018-01-03 11:47 | HHI.DCPOC ---
Discharge Care Plan Diagnosis: (1) Chest pain (2) Hypertension (3) Tobacco abuse (4) Bronchitis Goals to Promote Your Health * To prevent worsening of your condition and complications * To maintain your health at the optimal level Directions to Meet Your Goals Take your medications as prescribed Follow your dietary instruction Follow activity as directed Keep your appointments as scheduled Take your immunizations and boosters as scheduled If your symptoms worsen call your PCP, if no PCP go to Urgent Care Center or Emergency Room Smoking is Dangerous to Your Health. Avoid second hand smoke Call the 24-hour hour crisis hotline for domestic abuse at Abdirizak Mcdonald January 03, 2018 11:47
--- NOTE | 2018-01-04 12:56 | TR ---
Date Performed: 01/03/2018 Time Performed: 09:44:44 DOCTOR: Arnaldo Garcia DRUG LIST: CLINICAL HISTORY: ANGINA REASON FOR TEST: REASON FOR ENDING: OBSERVATION: CONCLUSION: Lexiscan stress test was performed under standard four minute protocol. Radionuclide was injected one minute prior to ending the test. No electrocardiographic abormalities were present to suggest ischemia. Nuclear imaging and interpretation are pending. COMMENTS:
== END 2018-01-03 12:33 | disposition home or self-care (01) ==
LOC: NEPE 07:40 → NEDA 10:29 → NEPHCDU 13:51
PROVIDERS: ADMIT Internal Medicine Cardiovascular Disease; ATTEND Internal Medicine Cardiovascular Disease
DX: R07.89 Other chest pain (principal); I10 Essential (primary) hypertension; J40 Bronchitis, not specified as acute or chronic; F17.200 Nicotine dependence, unspecified, uncomplicated; Z79.899 Other long term (current) drug therapy; Z91.14 Patient's other noncompliance with medication regimen
CPT/HCPCS: 71045; 78452; 80048; 82550; 82552; 84484; 85025; 85610; 85730; 93005; 93017; 94640; 94664; 99285; A9502; G0378; J2785; J7613